=== PATIENT | female | born 1935 | race Caucasian/White ===

== ENCOUNTER 2018-03-26 12:39 | Inpatient (IN) | payer OTHER, MEDICARE ==
--- NOTE | 2018-03-26 13:11 | PDOC ---
History of Present Illness - General Chief Complaint: Vomiting/Diarrhea Stated Complaint: DIARRHEA/VOMITING Time Seen by Provider: 03/26/18 13:07 - History of Present Illness Initial Comments: 03/26/18 14:35 The patient is an 82 year old female with a history of HLD, CAD, MA, Uterine CA who presents for evaluation of abdominal pain, nausea, vomiting, diarrhea. The patient reports a 1 week history of persistent non-bloody diarrhea with associated intermittent nausea and non-bloody, non-bilious vomiting prompting her presentation to the ED for further evaluation. She also notes crampy, poorly described abdominal pain as well. She otherwise denies fevers, chills, SOB, chest pain, or changes with urination. Past History - Past Medical History Allergies/Adverse Reactions: Allergies Allergy/AdvReac Type Severity Reaction Status Date / Time Penicillins Allergy Rash Verified 03/22/16 21:22 Home Medications: Ambulatory Orders Aspirin [ASA -] 81 mg PO DAILY 02/25/14 Atorvastatin Ca [Lipitor -] 40 mg PO HS 02/25/14 Metoprolol Succinate [Toprol XL -] 50 mg PO DAILY 02/25/14 Cancer: Yes (UTERINE) Cardiac Disorders: Yes (2 STENTS) COPD: No Disorders: Yes (FREQUENCY & INCONTINENCE) Hypercholesterolemia: Yes - Surgical History Cardiac Surgery: Yes ('09 STENTS) Cholecystectomy: Yes Orthopedic Surgery: No - Suicide/Smoking/Psychosocial Hx Smoking Status: No Smoking History: Never smoked Have you smoked in the past 12 months: No Number of Cigarettes Smoked Daily: 0 If you are a former smoker, when did you quit?: 29 years Hx Alcohol Use: Yes (OCC WINE) Substance Use Type: Alcohol Review of Systems - Review of Systems Comments:: 03/26/18 14:39 Constitutional: No fevers, chills, fatigue, malaise HEENT: No Rhinorrhea, nasal congestion, visual changes Cardiovascular: No chest pain, syncope, palpitations, lightheadedness Respiratory: No Cough, SOB, Hemoptysis, Gastrointestinal: Abdominal pain, nausea, vomiting, diarrhea. No Constipation, Melena Genitourinary: No Dysuria, Frequency, Urgency, Hesitancy, Hematuria, Flank pain Musculoskeletal: No Myalgia, arthralgia Skin: No rashes, itching, bruising, pallor Neurologic: No Headache, Dizziness, Numbness, Weakness, or Tingling Psychiatric: No Hallucinations. No SI or HI *Physical Exam - Vital Signs Last Vital Signs Temp Pulse Resp BP Pulse Ox 97.9 F 106 H 18 132/63 98 03/26/18 12:41 03/26/18 12:41 03/26/18 12:41 03/26/18 12:41 03/26/18 12:41 - Physical Exam Comments: 03/26/18 14:42 General Appearance: Nourished. No Apparent Distress HEENT: No Pharyngeal Erythema, Tonsillar Exudate, Tonsillar Erythema Neck: No Cervical Lymphadenopathy Respiratory/Chest: Lungs Clear, Normal Breath Sounds. No Crackles, Rales, Rhonchi, Wheezing Cardiovascular: Regular Rhythm, Regular Rate. No Murmur, Gallops, Rubs Gastrointestinal/Abdominal: Normal Bowel Sounds, Diffuse tenderness to palpation worse in the LLQ with some guarding. No Guarding, Musculoskeletal: No CVA Tenderness Extremity: Normal Capillary Refill Integumentary: Normal Color, Dry, Warm Neurologic: Fully Oriented, Alert, Normal Mood/Affect, Normal Response, Moderate Sedation - Procedure Monitoring Vital Signs: Procedure Monitoring Vital Signs Temperature 97.9 F 03/26/18 12:41 Pulse Rate 106 H 03/26/18 12:41 Respiratory Rate 18 03/26/18 12:41 Blood Pressure 132/63 03/26/18 12:41 O2 Sat by Pulse Oximetry (%) 98 03/26/18 12:41 ED Treatment Course - LABORATORY CBC & Chemistry Diagram: 03/26/18 13:53 03/26/18 14:10 Medical Decision Making - Medical Decision Making 03/26/18 14:43 The patient is an 82 year old female with a history of HLD, CAD, MA, Uterine CA who presents for evaluation of abdominal pain, nausea, vomiting, diarrhea. Differential includes but is not limited to: Colitis, Diverticulitis, UTI, Infectious, Metabolic Derangement. Given the patient's history and physical exam, we will obtain a cbc, cmp, lactate, lipase, ua, urine culture, CT abdomen/ pelvis to evaluate further. We will treat with iv fluids and continue to monitor and reassess while here in the ED. 03/26/18 18:05 CBC, cmp, lactate, lipase are unremarkable. UA demonstrates positive nitrites, positive leuk esterase, elevated wbc consistent with a UTI. CT abdomen/pelvis demonstrates two ventral hernias with small bowel loops in the inferior ventral hernia with air fluid levels consistent with a partial early small bowel obstruction as read by our radiologist. We discussed the case with Dr. Plunkett with surgery who is aware of the case and recommends ng tube, npo, and iv fluids. We have placed an NG tube. We will treat the patient's UTI with ceftriaxone. The patient will require admission for further management. *DC/Admit/Observation/Transfer Diagnosis at time of Disposition: SBO (small bowel obstruction) - Discharge Dispostion Condition at time of disposition: Stable Decision to Admit order: Yes - Referrals Referrals: Owen Garcia MD [Primary Care Provider] - - Patient Instructions - Post Discharge Activity
[2018-03-26] MEDS ORDERED: SODIUM CHLORIDE 1,000 ML IV STA (13:43)
[2018-03-26 15:02] LABS: ALBUMIN 3.6 g/dl (3.4-5.0); ALK PHOS 70 U/L (45-117); ANION GAP 10 MMOL/L (8-16); BLOOD UREA NITROGEN 21 mg/dL (7-18); CHLORIDE 97 mmol/L (98-107); CO2 27 mmol/L (21-32); CREATININE 1.2 mg/dL (0.55-1.3); GLUCOSE,RANDOM 97 mg/dL (74-106); LIPASE 126 U/L (73-393); POTASSIUM 4.3 mmol/L (3.5-5.1); SGOT/AST 33 U/L (15-37); SGPT/ALT 28 U/L (13-61); SODIUM 135 mmol/L (136-145); TOT PROT 7.6 g/dl (6.4-8.2)
[2018-03-26 15:12] LABS: BASO % 0.3 % (0-2.0); EOS % 0.5 % (0-4.5); HEMATOCRIT 41.8 % (32.4-45.2); HEMOGLOBIN 13.6 GM/dL (10.7-15.3); LYMPH % 14.7 % (8-40); MCH 29.1 pg (25.7-33.7); MCHC 32.6 g/dl (32.0-36.0); MEAN CELL VOLUME 89.2 fl (80-96); MEAN PLT VOLUME 8.8 fl (7.5-11.1); MONO % 7.1 % (3.8-10.2); NEUT % 77.4 % (42.8-82.8); PLATELET COUNT 231 K/MM3 (134-434); RBC 4.69 M/mm3 (3.60-5.2); RDW 12.9 % (11.6-15.6); WHITE BLOOD COUNT 8.8 K/mm3 (4.0-10.0)
--- NOTE | 2018-03-26 15:43 | PDOC ---
Attending Attestation - Resident Resident Name: Bridger Shay - ED Attending Attestation I have performed the following: I have examined & evaluated the patient, The case was reviewed & discussed with the resident, I agree w/resident's findings & plan, Exceptions are as noted - HPI HPI: 03/26/18 15:37 The patient is a 82 year old female, with a significant past medical history of CAD (s/p stenting x2), osteoarthritis, HLD, recurrent UTIs, and Uterine/ Cervical Cancer, who presents to the emergency department with, 1 week of nausea , NBNB vomiting, and non-bloody diarrhea. Patient endorses associated weakness and feeling of dehydration, prompting her visit to the ER tonight. She denies recent fevers, chills, headache or dizziness. She denies recent dysuria, frequency, urgency or hematuria. She denies recent chest pain or shortness of breath. Allergies: Penicillin (rash) Past surgical history: Cholecystectomy. Cardiac stenting 2009 x2. Social history: Former smoker, quit >25 years ago, occasional alcohol use. Primary Care Physician: Dr. Owen Garcia - Physicial Exam PE: 03/26/18 15:37 GENERAL: Awake, alert, and fully oriented, in no acute distress. HEAD: No signs of trauma EYES: PERRLA, EOMI, sclera anicteric, conjunctiva clear ENT: Auricles normal inspection, hearing grossly normal, nares patent, oropharynx clear without exudates. Moist mucosa NECK: Nontender, no stepoffs, Normal ROM, supple, no lymphadenopathy, JVD, or masses LUNGS: Breath sounds equal, clear to auscultation bilaterally. No wheezes, and no crackles HEART: Regular rate and rhythm, normal S1 and S2, no murmurs, rubs or gallops ABDOMEN: + diffuse TTP, normoactive bowel sounds. No guarding, no rebound. No masses EXTREMITIES: Normal range of motion, no edema. No clubbing or cyanosis. No cords, erythema, or tenderness NEUROLOGICAL: Cranial nerves II through XII intact. 5/5 strength and sensation in all extremities, Normal speech, normal gait, normal cerebellar function SKIN: Warm, Dry, normal turgor, no rashes or lesions noted. - Medical Decision Making 03/26/18 15:43 82 F with diarrhea and abdominal pain. Exam with diffuse tenderness. Will evaluate for colitis or other acute intraabdominal process with CT. - Labs, UA - CTAP - IVF 03/26/18 16:56 CT shows hernia containing small bowel + partial SBO. Dr. Plunkett consulted
[2018-03-26 16:42] LABS: URINE APPEARANCE SLCLOUDY; URINE BILIRUBIN NEGATIVE (<2.0 mg/dL); URINE COLOR YELLOW; URINE GLUCOSE (UA) NEGATIVE (NEGATIVE); URINE KETONE NEGATIVE (NEGATIVE); URINE LEUK ESTERASE 1+ (NEGATIVE); URINE NITRITE POSITIVE (NEGATIVE); URINE PROTEIN NEGATIVE (NEGATIVE); URINE UROBILINOGEN NEGATIVE mg/dL (0.2-1.0)
[2018-03-26] MEDS ORDERED: SODIUM CHLORIDE 1,000 ML IV SCH (17:00)
[2018-03-26 17:21] LABS: EPI CELLS RARE /HPF (FEW); URINE BACTERIA MANY /hpf (NONE SEEN); URINE HYALINE CAST 4 /lpf
[2018-03-26] MEDS ORDERED: LORazepam 2 MG/ML SDV VIAL ONE (17:41)
[2018-03-26] MEDS ORDERED: CEFTRIAXONE 1 GM in DEXTROSE 5%-WATER - 100 ML IVPB ONE (18:04)
[2018-03-26] MEDS ORDERED: CEFTRIAXONE 1 GM/50 ML BAG ONE (18:35)
--- NOTE | 2018-03-26 19:33 | HP ---
CHIEF COMPLAINT: PCP: Dr. Owen Garcia HISTORY OF PRESENT ILLNESS: 82 yo F PMH of CAD (s/p stenting x2 2009), penicillin allergy, cholecystectomy, osteoarthritis, HLD, recurrent UTIs, and Uterine/Cervical Cancer s/p hysterectomy, p/w, crampy abd pain worse in epigastrum and nausea, NBNB vomiting , and non-bloody diarrhea x1wk. Patient had associated weakness and feeling of dehydration. Unable to tolerate PO although liquids are more tolerable. She denies fevers, chills, FERNÁNDEZ or dizziness, cp, sob, urinary sxs, changes in diet, recent illness. ER course was notable for: (1) ativan, CTX, 1 L NS, NS 100cc (2)UA 1+ leuk est, wbc 27, pos nitrite, many bacteria (3) CT shows hernia containing small bowel + partial SBO., NGT NPO Recent Travel: PAST MEDICAL HISTORY: as per HPI PAST SURGICAL HISTORY: Cholecystectomy. Cardiac stenting 2009 x2. hysterectomy Social History: Smoking:Former smoker, quit >25 years ago Alcohol: occasional alcohol use. Drugs: denies Family History: Allergies Penicillins Allergy (Verified 03/22/16 21:22) Rash HOME MEDICATIONS: Home Medications Medication Instructions Recorded Aspirin [ASA -] 81 mg PO DAILY 02/25/14 Atorvastatin Ca [Lipitor -] 40 mg PO HS 02/25/14 Metoprolol Succinate [Toprol XL -] 50 mg PO DAILY 02/25/14 REVIEW OF SYSTEMS as per HPI PHYSICAL EXAMINATION Vital Signs - 24 hr 03/26/18 12:41 Temperature 97.9 F Pulse Rate 106 H Respiratory 18 Rate Blood Pressure 132/63 O2 Sat by Pulse 98 Oximetry (%) GENERAL:AOX3, NAD, NGT HEAD: NCAT. EYES: sclera anicteric, conjunctiva clear. No lid lag. EARS, NOSE, THROAT: Ears normal, nares patent, oropharynx clear without exudates. Moist mucous membranes. NECK: Normal range of motion, supple without lymphadenopathy, JVD, or masses. LUNGS: CTAB HEART: RRR, normal S1 and S2 + systolic murmur ABDOMEN: Soft, TTP diffusely more prominent in epigastrum, ND, +ventral hernia.+ BS, MUSCULOSKELETAL: Normal range of motion at all joints. No bony deformities or tenderness. UPPER EXTREMITIES: 2+ pulses, warm, well-perfused. No cyanosis. No clubbing. No peripheral edema. LOWER EXTREMITIES: 2+ pulses, warm, well-perfused. No calf tenderness. No peripheral edema. NEUROLOGICAL: Cranial nerves II-XII intact. Normal speech. PSYCHIATRIC: Cooperative. Good eye contact. Appropriate mood and affect. SKIN: Warm, dry, normal turgor, no rashes or lesions noted, normal capillary refill. Laboratory Results - last 24 hr 03/26/18 03/26/18 03/26/18 13:53 14:10 14:22 WBC 8.8 RBC 4.69 Hgb 13.6 Hct 41.8 MCV 89.2 MCH 29.1 MCHC 32.6 RDW 12.9 Plt Count 231 MPV 8.8 Absolute Neuts (auto) 6.8 Neutrophils % 77.4 Lymphocytes % 14.7 D Monocytes % 7.1 Eosinophils % 0.5 Basophils % 0.3 Nucleated RBC % 0 Sodium 135 L Potassium 4.3 Chloride 97 L Carbon Dioxide 27 Anion Gap 10 BUN 21 H Creatinine 1.2 Creat Clearance w eGFR 43.01 Random Glucose 97 Lactic Acid 1.1 Calcium 9.0 Total Bilirubin 1.0 AST 33 ALT 28 Alkaline Phosphatase 70 Creatine Kinase 127 Troponin I < 0.02 Total Protein 7.6 Albumin 3.6 Lipase 126 Urine Color Urine Appearance Urine pH Ur Specific [place] Urine Protein Urine Glucose (UA) Urine Ketones Urine Blood Urine Nitrite Urine Bilirubin Urine Urobilinogen Ur Leukocyte Esterase Urine WBC (Auto) Urine RBC (Auto) Ur Epithelial Cells Urine Bacteria Hyaline Casts 03/26/18 16:16 WBC RBC Hgb Hct MCV MCH MCHC RDW Plt Count MPV Absolute Neuts (auto) Neutrophils % Lymphocytes % Monocytes % Eosinophils % Basophils % Nucleated RBC % Sodium Potassium Chloride Carbon Dioxide Anion Gap BUN Creatinine Creat Clearance w eGFR Random Glucose Lactic Acid Calcium Total Bilirubin AST ALT Alkaline Phosphatase Creatine Kinase Troponin I Total Protein Albumin Lipase Urine Color Yellow Urine Appearance Slcloudy Urine pH 5.0 Ur Specific [place] 1.013 Urine Protein Negative Urine Glucose (UA) Negative Urine Ketones Negative Urine Blood 1+ H Urine Nitrite Positive Urine Bilirubin Negative Urine Urobilinogen Negative Ur Leukocyte Esterase 1+ H Urine WBC (Auto) 27 Urine RBC (Auto) 3 Ur Epithelial Cells Rare Urine Bacteria Many Hyaline Casts 4 ASSESSMENT/PLAN: 82 yo F PMH of CAD (s/p stenting x2 2008), penicillin allergy, cholecystectomy, osteoarthritis, HLD, recurrent UTIs, and Uterine/Cervical Cancer, p/w, crampy abd pain worse in epigastrum and nausea, NBNB vomiting, and non-bloody diarrhea x1wk. Partial SBO - afebrile and w/o leukocytosis. CT A/P - two ventral hernias with small bowel loops in the inferior ventral hernia with air fluid levels consistent with a partial early small bowel obstruction lactic nl, lipase nl, trop neg x1 Surgery consult NGT NPO s/p 1 L NS in ED NS 100cc pain ctl - morphine/tylenol send stool for C.diff monitor BMP prolonged Qtc 492 monitor Qtc give anti-nausea meds prn and cautiously rpt EKG in AM UTI - hx UTIs UA 1+ leuk est, wbc 27, pos nitrite, many bacteria s/p rocephin in ED c/w rocephin 1g qd f/u Ucx BOB - likely prerenal 2/2 dehydration. Cr 1.2, baseline is .8 IVF monitor Cr FEN NS 100cc relpete prn NPO, NGT DVT prophylaxis SCDs, will hold off on AC in anticipation for possible surgical intervention Advance directives - Full code Dispo med/surg possible surgery pending conservative management Visit type - Emergency Visit Emergency Visit: Yes ED Registration Date: 03/26/18 Care time: The patient presented to the Emergency Department on the above date and was hospitalized for further evaluation of their emergent condition. - New Patient This patient is new to me today: Yes Date on this admission: 03/26/18 - Critical Care Critical Care patient: No
--- NOTE | 2018-03-26 20:02 | PN ---
Teaching Attending Note Name of Resident: Geovani Jones ATTENDING PHYSICIAN STATEMENT I saw and evaluated the patient. I reviewed the resident's note and discussed the case with the resident. I agree with the resident's findings and plan as documented. SUBJECTIVE: Patient is an 82 year old woman with a significant PMH of CAD (s/p stenting x2) , penicillin allergy, cholecystectomy, osteoarthritis, HLD, recurrent UTIs, and Uterine/Cervical Cancer, who presents to the ER with, 1 week of nausea, NBNB vomiting, and non-bloody diarrhea. Patient had associated weakness and feeling of dehydration. She denies chills, headache or dizziness, dysuria, frequency, chest pain or shortness of breath. OBJECTIVE: Alert Vital Signs Period Temp Pulse Resp BP Sys/Gonzalez Pulse Ox Last 24 Hr 97.9 F 106 18 132/63 98 HEENT: No Jaundice, eye redness or discharge, PERRLA, EOMI. Normocephalic, atraumatic. External ears are normal and hearing is grossly intact. No nasal discharge. Neck: Supple, nontender. No palpable adenopathy or thyromegaly. No JVD Chest: Good effort. Clear to auscultation and percussion. Heart: Regular. No S3, rub or murmur Abdomen: Not distended, diffuse tenderness, soft, nontender and no HSM. No rebound or guarding. Normoactive bowel sounds. Ext: Peripheral pulses intact. No leg edema. Skin: Warm and dry. No petechiae, rash or ecchymosis. Neuro: Alert. Oriented x3. CN 2-12 grossly intact. Sensation grossly intact in all four extremities and DTR are symmetric. Current Medications Generic Name Dose Route Start Last Admin Trade Name Freq PRN Reason Stop Dose Admin Sodium Chloride 1,000 mls @ 100 mls/hr 03/26/18 17:00 03/26/18 17:04 Normal Saline - IV 100 mls/hr ASDIR ESTUARDO Administration Home Medications Medication Instructions Recorded Aspirin [ASA -] 81 mg PO DAILY 02/25/14 Atorvastatin Ca [Lipitor -] 40 mg PO HS 02/25/14 Metoprolol Succinate [Toprol XL -] 50 mg PO DAILY 02/25/14 Abnormal Lab Results 03/26/18 03/26/18 14:10 16:16 Sodium 135 L Chloride 97 L BUN 21 H Urine Blood 1+ H Ur Leukocyte Esterase 1+ H ASSESSMENT AND PLAN: 1. Partial SBO - CT scan shows partial small bowel obstruction. There is also colonic distension and possible obstruction. Surgery consulted and NGT placement being done. Will send stool for C.diff, continue IV NS, monitor electrolytes and treat UTI with Rocephin. 2. DVT prophylaxis - Lovenox 40 mg SQ q 24 hours. 3. Advance directives - Full code
[2018-03-26] MEDS ORDERED: MORPHINE SULFATE 2 MG/ML VIAL IVPUSH PRN (20:28)
[2018-03-26] MEDS ORDERED: ACETAMINOPHEN 1000 MG/100 ML VIAL (NON FORMULARY) IVPB PRN (20:35)
[2018-03-27 06:21] LABS: BASO % 0.4 % (0-2.0); EOS % 1.9 % (0-4.5); HEMATOCRIT 38.7 % (32.4-45.2); HEMOGLOBIN 12.9 GM/dL (10.7-15.3); LYMPH % 16.7 % (8-40); MCH 29.3 pg (25.7-33.7); MCHC 33.2 g/dl (32.0-36.0); MEAN PLT VOLUME 7.9 fl (7.5-11.1); MONO % 6.8 % (3.8-10.2); NEUT % 74.2 % (42.8-82.8); PLATELET COUNT 212 K/MM3 (134-434)
[2018-03-27 06:40] LABS: INR 1.03 (0.83-1.09); PROTHROMBIN TIME (PATIENT) 12.2 SEC (9.7-13.0)
[2018-03-27 06:42] LABS: ACTIVATED PTT 25.4 SECONDS (25.2-36.5)
[2018-03-27 06:47] LABS: ALBUMIN 3.2 g/dl (3.4-5.0); ALK PHOS 62 U/L (45-117); ANION GAP 8 MMOL/L (8-16); BILIRUBIN,TOTAL 0.6 mg/dL (0.2-1); BLOOD UREA NITROGEN 15 mg/dL (7-18); CHLORIDE 102 mmol/L (98-107); CO2 29 mmol/L (21-32); CREATININE 0.8 mg/dL (0.55-1.3); GLUCOSE,RANDOM 76 mg/dL (74-106); MAGNESIUM 1.9 mg/dL (1.8-2.4); PHOSPHOROUS 3.1 mg/dL (2.5-4.9); POTASSIUM 3.3 mmol/L (3.5-5.1); SGOT/AST 22 U/L (15-37); SGPT/ALT 22 U/L (13-61); SODIUM 139 mmol/L (136-145); TOT PROT 6.6 g/dl (6.4-8.2)
--- NOTE | 2018-03-27 07:47 | CONSULT ---
- Consultation REQUESTING PROVIDER: Travon Plunkett MD - General Surgery CONSULT REQUEST: We have been asked to surgically evaluate this patient for PSBO PCP: JOHN Farias HPI: Called to evhellen 82yo female with PMHx as noted below. Patient was in her usual state of good health when the abd pain started 1 week ago today. Admits to bouts of intermittent n/v (nbnb) as well as diarrhea (baseline for her per pt ). Unable to drink or eat. Feels very weak. Finally, frustrated she comes to [facility] ED for further evaluation of her condition. States she never experienced this before. She describes her pain as "crampy" in nature and points to her epigastric region. Currently has NGT (on LWCS). Hasn't passed flatus since admit to hospital and can't remember when her last solid bm was. While in the ED she had a abd CT scan which identiifed 2 ventral hernias (1. proximal one contains fat only. second one in the distal/pelvis contains loop of SB and appears to be the cause of the PSBO. Denies fevers, chills, FERNÁNDEZ, CP, palpitation, SOB, TELLEZ, dysuria , hematuria, recent illness. PMHx: OA, HLD, recurrent UTI, Vulvar CA PSHx: Open Cholecystectomy 1960s. Cardiac stenting x2 in 2008. Hysterectomy Home Meds ASA 81 mg PO daily Lipitor 40 mg PO HS Toprol XL 50 mg PO Daily Allergies: PCNs ROS: CONSTITUTIONAL: Absent: fever, chills, diaphoresis, generalized weakness, malaise, loss of appetite, weight change CARDIOVASCULAR: Absent: chest pain, syncope, palpitations, irregular heart rate , lightheadedness, peripheral edema RESPIRATORY: Absent: cough, shortness of breath, dyspnea with exertion, wheezing , stridor, hemoptysis GASTROINTESTINAL:Absent: abdominal pain, abdominal distension, nausea, vomiting , diarrhea, constipation, melena, hematochezia GENITOURINARY: Absent: dysuria, frequency, urgency, hesitancy, hematuria, flank pain, genital pain MUSCULOSKELETAL: Absent: myalgia, arthralgia, joint swelling, back pain, neck pain SKIN: Absent: rash, itching, pallor HEMATOLOGIC/IMMUNOLOGIC: Absent: easy bleeding, easy bruising, lymphadenopathy NEUROLOGIC: Absent: headache, paresthesias, dizziness, unsteady gait, seizure, mental status changes, bladder or bowel incontinence PSYCHIATRIC: Absent: anxiety, depression, suicidal or homicidal ideation, hallucinations. PE: GENERAL: Awake, alert, and fully oriented, in no acute distress. HEAD: Normal with no signs of trauma. ENT: PERRL, sclera anicteric, conjunctiva clear. NGT with billious drainage 300mL NECK: Normal ROM, supple without lymphadenopathy, JVD, or masses. LUNGS: Clear to auscultation bilat anteriorly. No wheezes, and no crackles. No accessory muscle use. HEART: Regular rate and rhythm. No murmurs ABDOMEN: Soft, nontender, not distended, normoactive bowel sounds, no guarding, no rebound, no masses. Ventral hernia x2 MUSCULOSKELETAL: Normal ROM at all joints. No bony deformities or tenderness. No CVA tenderness. UPPER EXTREMITIES: 2+ pulses, warm, well-perfused. No cyanosis. Cap refill <2 seconds. No peripheral edema. LOWER EXTREMITIES: 2+ pulses, warm, well-perfused. No calf tenderness. No peripheral edema. NEUROLOGICAL: Normal speech, gait not observed. PSYCH: Cooperative. Good eye contact. Appropriate mood and affect. SKIN: Warm, dry, normal turgor, no rashes or lesions noted. Last Vital Signs Temp Pulse Resp BP Pulse Ox 98.2 F 93 H 20 142/63 96 03/26/18 20:45 03/27/18 06:23 03/27/18 06:23 03/27/18 06:23 03/27/18 06:23 CBC, BMP 03/27/18 05:40 03/27/18 06:00 Blood Type Blood Type AB POSITIVE 03/27/18 05:40 Hepatic Panel Total Bilirubin 0.6 mg/dL (0.2-1) 03/27/18 06:00 AST 22 U/L (15-37) 03/27/18 06:00 ALT 22 U/L (13-61) 03/27/18 06:00 Alkaline Phosphatase 62 U/L (45-117) 03/27/18 06:00 Albumin 3.2 g/dl (3.4-5.0) L 03/27/18 06:00 INR, PTT INR 1.03 (0.83-1.09) 03/27/18 05:40 Urine Test Results Urine Color Yellow 03/26/18 16:16 Urine Appearance Slcloudy 03/26/18 16:16 Urine pH 5.0 (5.0-8.0) 03/26/18 16:16 Ur Specific [place] 1.013 (1.010-1.035) 03/26/18 16:16 Urine Protein Negative (NEGATIVE) 03/26/18 16:16 Urine Glucose (UA) Negative (NEGATIVE) 03/26/18 16:16 Urine Ketones Negative (NEGATIVE) 03/26/18 16:16 Urine Blood 1+ (NEGATIVE) H 03/26/18 16:16 Urine Nitrite Positive (NEGATIVE) 03/26/18 16:16 Urine Bilirubin Negative (<2.0 mg/dL) 03/26/18 16:16 Ur Leukocyte Esterase 1+ (NEGATIVE) H 03/26/18 16:16 Ur Epithelial Cells Rare /HPF (FEW) 03/26/18 16:16 Urine Bacteria Many /hpf (NONE SEEN) 03/26/18 16:16 Problem List - Problems (1) SBO (small bowel obstruction) Assessment/Plan: 82 yo female admitted with PSBO secondary to hernia containing loop of SB. Currently, patient resting comfortably with NGT. Hemodynamically stable. Cont NGT to LWCS Ice chips IVF 125mL/hr GI PPX DVT PPX OOB and ambulate Serial ABD exams Replete elytes PRN Cont to monitor and record NGT output q shift Conservative management at this time If fails to progress patient would benefit from Dx laparoscopy. Discussed above plan with patient and she understands and is agreeable with plan of action. Above plan discussed with Dr. Plunkett and agrees. Code(s): K56.609 - UNSP INTESTNL OBST, UNSP TO PARTIAL VERSUS COMPLETE OBST (2) Ventral hernia Code(s): K43.9 - VENTRAL HERNIA WITHOUT OBSTRUCTION OR GANGRENE Visit type - Case Type Case Type: ED Admission - Emergency Emergency Visit: Yes ED Registration Date: 03/26/18 Care time: The patient presented to the Emergency Department on the above date and was hospitalized for further evaluation of their emergent condition. - New patient This patient is new to me today: Yes Date on this admission: 03/27/18
[2018-03-27] MEDS ORDERED: ONDANSETRON 4 MG/2 ML VIAL IVPUSH PRN (09:02)
--- NOTE | 2018-03-27 09:03 | PN ---
Progress Note, Physician Chief Complaint: Pt sitting in bed in no acute distress. Reports abd pain better. denies n/v, chest pain, sob - Current Medication List Current Medications: Active Medications Acetaminophen (Ofirmev Injection -) 1,000 mg IVPB Q6H PRN PRN Reason: PAIN LEVEL 4 - 6 Sodium Chloride (Normal Saline -) 1,000 mls @ 100 mls/hr IV ASDIR ESTUARDO Last Admin: 03/26/18 17:04 Dose: 100 mls/hr Ceftriaxone Sodium 1 gm/ (Dextrose) 50 mls @ 100 mls/hr IVPB DAILY@1800 ESTUARDO Potassium Chloride (Potassium Chloride 10 Meq Premix Ivpb -) 10 meq in 100 mls @ 100 mls/hr IVPB Q60M ESTUARDO Stop: 03/27/18 12:14 Morphine Sulfate (Morphine Sulfate) 2 mg IVPUSH Q4H PRN PRN Reason: PAIN LEVEL 7 - 10 Ondansetron HCl (Zofran Injection) 4 mg IVPUSH Q6H PRN PRN Reason: NAUSEA AND/OR VOMITING - Objective Vital Signs: Vital Signs Temperature 98.2 F 03/26/18 20:45 Pulse Rate 93 H 03/27/18 06:23 Respiratory Rate 20 03/27/18 06:23 Blood Pressure 142/63 03/27/18 06:23 O2 Sat by Pulse Oximetry (%) 96 03/27/18 06:23 Constitutional: Yes: Well Nourished, No Distress, Calm Cardiovascular: Yes: Regular Rate and Rhythm Respiratory: Yes: Regular, CTA Bilaterally. No: Accessory Muscle Use, Rhonchi, SOB Gastrointestinal: Yes: Soft, Abdomen, Obese, Hypoactive Bowel Sounds, Other ( NGT to LCWS). No: Distention, Tenderness, Vomiting Genitourinary: Yes: WNL Extremities: Yes: WNL Edema: No Neurological: Yes: WNL, Alert, Oriented Psychiatric: Yes: WNL, Alert, Oriented Labs: CBC, BMP 03/27/18 05:40 03/27/18 06:00 INR, PTT INR 1.03 (0.83-1.09) 03/27/18 05:40 Problem List - Problems (1) SBO (small bowel obstruction) Assessment/Plan: improving suspect 2/2 ventral hernia conservative management NGT to LCWS NPO IVF antiemetics Kub scan tmrw am- monitor surgery following Code(s): K56.609 - UNSP INTESTNL OBST, UNSP TO PARTIAL VERSUS COMPLETE OBST (2) Ventral hernia Assessment/Plan: as above Code(s): K43.9 - VENTRAL HERNIA WITHOUT OBSTRUCTION OR GANGRENE Qualifiers: Obstruction and gangrene presence: with obstruction but without gangrene Qualified Code(s): K43.6 - Other and unspecified ventral hernia with obstruction , without gangrene (3) Hypokalemia Assessment/Plan: k 3.3 kcl iv 10meqx 3 runs supplement to ivf if no improvement monitor bmp Code(s): E87.6 - HYPOKALEMIA (4) UTI (urinary tract infection) Assessment/Plan: UA+, UC pending pt asymptomatic will tx in the setting of psbo ceftriaxone day 2 await culture, d/c antibx if culture neg Code(s): N39.0 - URINARY TRACT INFECTION, SITE NOT SPECIFIED Qualifiers: Urinary tract infection type: acute cystitis Hematuria presence: with hematuria Qualified Code(s): N30.01 - Acute cystitis with hematuria (5) CAD (coronary artery disease) Assessment/Plan: no acute ACS hold asa/statin while npo Code(s): I25.10 - ATHSCL HEART DISEASE OF [place] CORONARY ARTERY W/O ANG PCTRS Qualifiers: [place] vs. transplanted heart: [place] heart Associated angina: without angina (6) HTN (hypertension) Assessment/Plan: controlled hold po metoprolol metoprolol iv prn Code(s): I10 - ESSENTIAL (PRIMARY) HYPERTENSION Qualifiers: Hypertension type: essential hypertension Qualified Code(s): I10 - Essential (primary) hypertension
[2018-03-27] MEDS ORDERED: CEFTRIAXONE 1 GM/50 ML BAG ONE ×2 (10:28→17:24)
[2018-03-27] MEDS ORDERED: KCL 10 MEQ IVPB 10 MEQ/100 ML INFUS.BAG IVPB ONE ×3 (10:28→14:55)
[2018-03-27] MEDS: DEXTROSE 5%-0.45% SALINE 1,000 ML IV SCH ×3 (10:43→23:57)
[2018-03-27] MEDS: KCL 10 MEQ IVPB 10 MEQ/100 ML INFUS.BAG IVPB SCH ×3 (10:44→14:57)
--- NOTE | 2018-03-27 14:32 | EKG ---
Test Reason : Blood Pressure : / mmHG Vent. Rate : 101 BPM Atrial Rate : 101 BPM P-R Int : 136 ms QRS Dur : 070 ms QT Int : 380 ms P-R-T Axes : 052 024 028 degrees QTc Int : 492 ms POOR DATA QUALITY, INTERPRETATION MAY BE ADVERSELY AFFECTED SINUS TACHYCARDIA ANTERIOR INFARCT (CITED ON OR BEFORE 26-MAR-2018) ABNORMAL ECG WHEN COMPARED WITH ECG OF 25-FEB-2014 18:32, ST NOW DEPRESSED IN ANTERIOR LEADS NONSPECIFIC T WAVE ABNORMALITY NOW EVIDENT IN ANTERIOR LEADS Confirmed by Delano Maher ([id number]) on 03/27/2018 2:31:47 PM Referred By: Confirmed By:Delano Maher
--- NOTE | 2018-03-27 15:31 | EKG ---
Test Reason : Blood Pressure : / mmHG Vent. Rate : 093 BPM Atrial Rate : 093 BPM P-R Int : 152 ms QRS Dur : 076 ms QT Int : 418 ms P-R-T Axes : 057 049 050 degrees QTc Int : 519 ms POOR DATA QUALITY, INTERPRETATION MAY BE ADVERSELY AFFECTED Electrode noise SINUS RHYTHM WITH PREMATURE ATRIAL COMPLEXES OTHERWISE NORMAL ECG WHEN COMPARED WITH ECG OF 26-MAR-2018 18:17, PREMATURE ATRIAL COMPLEXES ARE NOW PRESENT CRITERIA FOR ANTERIOR INFARCT ARE NO LONGER PRESENT Confirmed by Delano Maher ([id number]) on 03/27/2018 3:31:39 PM Referred By: Confirmed By:Delano Maher
[2018-03-27] MEDS ORDERED: METOPROLOL TARTRATE 5 MG/5 ML VIAL IVPUSH PRN (16:03)
[2018-03-27] MEDS: CEFTRIAXONE 1 GM in DEXTROSE 5%-WATER - 50 ML IVPB SCH (17:27)
[2018-03-27 23:41] VITALS: BMI 27.0
[2018-03-28 08:16] LABS: BASO % 0.3 % (0-2.0); EOS % 2.9 % (0-4.5); HEMATOCRIT 35.6 % (32.4-45.2); HEMOGLOBIN 12.4 GM/dL (10.7-15.3); LYMPH % 18.3 % (8-40); MCH 30.5 pg (25.7-33.7); MCHC 34.9 g/dl (32.0-36.0); MEAN CELL VOLUME 87.3 fl (80-96); MEAN PLT VOLUME 8.4 fl (7.5-11.1); MONO % 7.9 % (3.8-10.2); NEUT % 70.6 % (42.8-82.8); PLATELET COUNT 220 K/MM3 (134-434); RBC 4.08 M/mm3 (3.60-5.2); WHITE BLOOD COUNT 7.7 K/mm3 (4.0-10.0)
[2018-03-28 09:36] LABS: ANION GAP 8 MMOL/L (8-16); BLOOD UREA NITROGEN 6 mg/dL (7-18); CALCIUM 7.4 mg/dL (8.5-10.1); CHLORIDE 101 mmol/L (98-107); CO2 29 mmol/L (21-32); CREATININE 0.6 mg/dL (0.55-1.3); GLUCOSE,RANDOM 83 mg/dL (74-106); POTASSIUM 3.1 mmol/L (3.5-5.1); SODIUM 138 mmol/L (136-145)
[2018-03-28 09:55] LABS: MAGNESIUM 1.7 mg/dL (1.8-2.4)
--- NOTE | 2018-03-28 12:24 | PN ---
Progress Note (short form) - Note Progress Note: Attending Surgeon No c/o; passing flatus and having bowel movements VSS AF abdo-soft; flat and non tender; minimal tympany; hernias are reducible. NGT 500/24 hrs. ? IMP: doing welll PLAN: flat and upright abdominal xray; if no radilogical evidence of obstruction will remove NGT and advance diet as tolerated. Travon Plunkett MD FACS
--- NOTE | 2018-03-28 16:26 | PN ---
Physical Exam: SUBJECTIVE: Patient seen and examined. She has no complaints. She denies abdominal pain, nausea. She says she has had bowel movements today. OBJECTIVE: Vital Signs Period Temp Pulse Resp BP Sys/Gonzalez Pulse Ox Last 24 Hr 97.3 F-98.7 F 91-107 16-20 128-158/60-75 99-99 GENERAL: The patient is awake, alert, and fully oriented, in no acute distress. HEART: Regular rate and rhythm, S1, S2, (+) 3/6 SM ABDOMEN: Soft, nontender, nondistended, normoactive bowel sounds, no guarding, no rebound, no hepatosplenomegaly, no masses. EXTREMITIES: 2+ pulses, warm, well-perfused, no edema. Laboratory Results - last 24 hr 03/28/18 03/28/18 07:04 07:04 WBC 7.7 RBC 4.08 Hgb 12.4 Hct 35.6 MCV 87.3 MCH 30.5 MCHC 34.9 RDW 13.0 Plt Count 220 MPV 8.4 Absolute Neuts (auto) 5.4 Neutrophils % 70.6 Lymphocytes % 18.3 Monocytes % 7.9 Eosinophils % 2.9 Basophils % 0.3 Nucleated RBC % 0 Sodium 138 Potassium 3.1 L Chloride 101 Carbon Dioxide 29 Anion Gap 8 BUN 6 L Creatinine 0.6 Creat Clearance w eGFR > 60 Random Glucose 83 Calcium 7.4 L Phosphorus 2.0 L Magnesium 1.7 L Active Medications Generic Name Dose Route Start Last Admin Trade Name Freq PRN Reason Stop Dose Admin Acetaminophen 1,000 mg 03/26/18 20:35 Ofirmev Injection - IVPB Q6H PRN PAIN LEVEL 4 - 6 Ceftriaxone Sodium 1 gm/ 50 mls @ 100 mls/hr 03/27/18 18:00 03/27/18 17:27 Dextrose IVPB 100 mls/hr DAILY@1800 ESTUARDO Administration Dextrose/Sodium Chloride 1,000 mls @ 75 mls/hr 03/28/18 16:25 D5-1/2ns - IV ASDIR ESTUARDO Metoprolol Tartrate 5 mg 03/27/18 16:03 Lopressor Injection - IVPUSH Q6H PRN HYPERTENSION Morphine Sulfate 2 mg 03/26/18 20:28 Morphine Sulfate IVPUSH Q4H PRN PAIN LEVEL 7 - 10 Ondansetron HCl 4 mg 03/27/18 09:02 03/27/18 23:53 Zofran Injection IVPUSH 4 mg Q6H PRN Administration NAUSEA AND/OR VOMITING ASSESSMENT/PLAN: 1. Partial SBO - Improved - Possibly secondary to ventral hernia - Remove NGT - Start clear liquids - Reduce IV fluid 2. Ventral hernia 3. Hypokalemia - Replete potassium 4. UTI - Continue ceftriaxone (day 3) - Follow up urine culture 5. CAD - Restart aspirin, Toprol XL, Lipitor 6. HTN - Restart Toprol XL 7. Hyperlipidemia - Restart Lipitor 8. History of cholecystectomy 9. History of hysterectomy for uterine cancer Visit type - Emergency Visit Emergency Visit: Yes ED Registration Date: 03/26/18 Care time: The patient presented to the Emergency Department on the above date and was hospitalized for further evaluation of their emergent condition. - New Patient This patient is new to me today: Yes Date on this admission: 03/28/18 - Critical Care Critical Care patient: No - Discharge Referral Referred to [facility] Med [facility] No
[2018-03-28] MEDS: DEXTROSE 5%-0.45% SALINE 1,000 ML IV SCH (16:34)
[2018-03-28] MEDS ORDERED: MAGNESIUM OXIDE 400 MG TABLET (FP) PO ONE (17:00)
[2018-03-28] MEDS ORDERED: POTASSIUM CHLORIDE TABS 20 MEQ TABLET.ER (FP) PO ONE (17:00)
[2018-03-28] MEDS ORDERED: DEXTROSE 5%-WATER - 50 ML IVPB ONE (17:04)
[2018-03-28] MEDS ORDERED: cefTRIAXone SODIUM 1 GM VIAL ONE (17:04)
[2018-03-28] MEDS: CEFTRIAXONE 1 GM in DEXTROSE 5%-WATER - 50 ML IVPB SCH (17:11)
[2018-03-28] MEDS: NAPH,MB-DB/K PH,MBDB POWDER PACKET PO SCH (21:35)
[2018-03-29] MEDS ORDERED: LOPERAMIDE HCL 2 MG CAPSULE PO PRN (02:08)
[2018-03-29] MEDS: DEXTROSE 5%-0.45% SALINE 1,000 ML IV SCH (06:31)
[2018-03-29] MEDS: NAPH,MB-DB/K PH,MBDB POWDER PACKET PO SCH ×3 (06:32→21:27)
[2018-03-29 07:47] LABS: ANION GAP 8 MMOL/L (8-16); BLOOD UREA NITROGEN 4 mg/dL (7-18); CALCIUM 7.5 mg/dL (8.5-10.1); CHLORIDE 100 mmol/L (98-107); CO2 30 mmol/L (21-32); CREATININE 0.7 mg/dL (0.55-1.3); GLUCOSE,RANDOM 97 mg/dL (74-106); MAGNESIUM 1.9 mg/dL (1.8-2.4); PHOSPHOROUS 1.9 mg/dL (2.5-4.9); POTASSIUM 3.6 mmol/L (3.5-5.1); SODIUM 138 mmol/L (136-145)
--- NOTE | 2018-03-29 09:11 | PN ---
Progress Note (short form) - Note Progress Note: Pt sates that she had 4 to 5 episodes of diarrhea(nonbloody). On clears after NGT removed. Vital Signs Period Temp Pulse Resp BP Sys/Gonzalez Pulse Ox Last 24 Hr 97.3 F-98.1 F 91-97 18-18 133-139/72-78 99 GEN: appears comfortable ABD: soft, non-distended, non-tender CBC, BMP 03/28/18 07:04 03/29/18 07:00 AXR: report dilated bowel A/P: 82 yo female with resolving SBO, now with diarrhea Tolerating clears, afebrile without any leukocytosis D/w Dr. Plunkett and obtain repeat AXR today/flat an upright <Milvia Jaimes - Last Filed: 03/29/18 09:12> - Note Progress Note: Attending Surgeon Seen in f/u; no clinical or radiological evidence of obstruction at this time; advance diet as tolerated. Travon Plunkett MD FACS <Travon Plunkett - Last Filed: 03/29/18 13:57>
[2018-03-29] MEDS: ASPIRIN 81 MG CHEWABLE TABLETS PO SCH (09:52)
[2018-03-29] MEDS: metoPROLOL SUCCINATE 25 MG TAB.SR.24H (FP) PO SCH (09:52)
[2018-03-29] MEDS ORDERED: POTASSIUM CHLORIDE TABS 20 MEQ TABLET.ER (FP) PO ONE (13:30)
--- NOTE | 2018-03-29 16:46 | PN ---
Progress Note, Physician Chief Complaint: Pt sitting in bed in no acute distress. tolerating clears. denies n/v, chest pain, sob, and pain - Current Medication List Current Medications: Active Medications Acetaminophen (Ofirmev Injection -) 1,000 mg IVPB Q6H PRN PRN Reason: PAIN LEVEL 4 - 6 Aspirin (Asa -) 81 mg PO DAILY [facility] Last Admin: 03/29/18 09:52 Dose: 81 mg Atorvastatin Calcium (Lipitor -) 40 mg PO [facility] Metoprolol Succinate (Toprol Xl -) 50 mg PO DAILY [facility] Last Admin: 03/29/18 09:52 Dose: 50 mg Metoprolol Tartrate (Lopressor Injection -) 5 mg IVPUSH Q6H PRN PRN Reason: HYPERTENSION Morphine Sulfate (Morphine Sulfate) 2 mg IVPUSH Q4H PRN PRN Reason: PAIN LEVEL 7 - 10 Ondansetron HCl (Zofran Injection) 4 mg IVPUSH Q6H PRN PRN Reason: NAUSEA AND/OR VOMITING Last Admin: 03/27/18 23:53 Dose: 4 mg Potassium Phos/Sodium Phos (Phos-Nak Packet -) 1 packet PO TID [facility] Last Admin: 03/29/18 13:41 Dose: 1 packet - Objective Vital Signs: Vital Signs Temperature 98.0 F 03/29/18 14:48 Pulse Rate 89 03/29/18 14:48 Respiratory Rate 18 03/29/18 14:48 Blood Pressure 135/69 03/29/18 14:48 O2 Sat by Pulse Oximetry (%) 99 03/29/18 09:00 Constitutional: Yes: Well Nourished, No Distress, Calm Cardiovascular: Yes: WNL, Regular Rate and Rhythm Respiratory: Yes: WNL, Regular, CTA Bilaterally. No: Accessory Muscle Use, SOB , Tachypnea, Wheezes Gastrointestinal: Yes: WNL, Normal Bowel Sounds, Soft, Abdomen, Obese, Hernia. No: Distention, Tenderness Genitourinary: Yes: WNL Extremities: Yes: WNL Edema: No Neurological: Yes: WNL, Alert, Oriented Psychiatric: Yes: WNL, Alert, Oriented Labs: CBC, BMP 03/28/18 07:04 03/29/18 07:00 INR, PTT INR 1.03 (0.83-1.09) 03/27/18 05:40 Problem List - Problems (1) SBO (small bowel obstruction) Code(s): K56.609 - UNSP INTESTNL OBST, UNSP TO PARTIAL VERSUS COMPLETE OBST (2) Ventral hernia Code(s): K43.9 - VENTRAL HERNIA WITHOUT OBSTRUCTION OR GANGRENE Qualifiers: Obstruction and gangrene presence: with obstruction but without gangrene Qualified Code(s): K43.6 - Other and unspecified ventral hernia with obstruction , without gangrene (3) Hypokalemia Code(s): E87.6 - HYPOKALEMIA (4) UTI (urinary tract infection) Code(s): N39.0 - URINARY TRACT INFECTION, SITE NOT SPECIFIED Qualifiers: Urinary tract infection type: acute cystitis Hematuria presence: with hematuria Qualified Code(s): N30.01 - Acute cystitis with hematuria (5) CAD (coronary artery disease) Code(s): I25.10 - ATHSCL HEART DISEASE OF [place] CORONARY ARTERY W/O ANG PCTRS Qualifiers: [place] vs. transplanted heart: [place] heart Associated angina: without angina (6) HTN (hypertension) Code(s): I10 - ESSENTIAL (PRIMARY) HYPERTENSION Qualifiers: Hypertension type: essential hypertension Qualified Code(s): I10 - Essential (primary) hypertension Assessment/Plan (1) SBO (small bowel obstruction) Assessment/Plan: resolved w/ conserv mngmnt +bm, +flatus 2/2 ventral hernia tolerating clears- advance as tolerated case discussed w/ surgery Code(s): K56.609 - UNSP INTESTNL OBST, UNSP TO PARTIAL VERSUS COMPLETE OBST (2) Ventral hernia Assessment/Plan: as above Code(s): K43.9 - VENTRAL HERNIA WITHOUT OBSTRUCTION OR GANGRENE Qualifiers: Obstruction and gangrene presence: with obstruction but without gangrene Qualified Code(s): K43.6 - Other and unspecified ventral hernia with obstruction , without gangrene (3) Hypokalemia Assessment/Plan: improved kcl po [id number] monitor bmp Code(s): E87.6 - HYPOKALEMIA (4) UTI (urinary tract infection) Assessment/Plan: asymptomatic urine culture neg ceftriaxone d/c'd Code(s): N39.0 - URINARY TRACT INFECTION, SITE NOT SPECIFIED Qualifiers: Urinary tract infection type: acute cystitis Hematuria presence: with hematuria Qualified Code(s): N30.01 - Acute cystitis with hematuria (5) CAD (coronary artery disease) Assessment/Plan: no acute ACS continue asa/statin Code(s): I25.10 - ATHSCL HEART DISEASE OF [place] CORONARY ARTERY W/O ANG PCTRS Qualifiers: [place] vs. transplanted heart: [place] heart Associated angina: without angina (6) HTN (hypertension) Assessment/Plan: controlled continue metoprolol Code(s): I10 - ESSENTIAL (PRIMARY) HYPERTENSION Qualifiers: Hypertension type: essential hypertension Qualified Code(s): I10 - Essential (primary) hypertension (7) Hypophosphatemia Assessment/Plan: improving kphos scheduled monitor bmp Code(s): E83.39 - OTHER DISORDERS OF PHOSPHORUS METABOLISM
[2018-03-29] MEDS ORDERED: ATORVASTATIN CA 40 MG TABLET (FP) PO SCH (22:00)
[2018-03-30] MEDS ORDERED: PT OWN MED DRAWER 7, Y5N ONE (04:09)
[2018-03-30] MEDS: NAPH,MB-DB/K PH,MBDB POWDER PACKET PO SCH ×2 (05:45→13:19)
[2018-03-30 07:32] LABS: BASO % 0.8 % (0-2.0); EOS % 5.6 % (0-4.5); HEMATOCRIT 37.9 % (32.4-45.2); HEMOGLOBIN 12.3 GM/dL (10.7-15.3); LYMPH % 19.5 % (8-40); MCHC 32.6 g/dl (32.0-36.0); MEAN PLT VOLUME 8.6 fl (7.5-11.1); MONO % 8.2 % (3.8-10.2); NEUT % 65.9 % (42.8-82.8); PLATELET COUNT 203 K/MM3 (134-434); RBC 4.26 M/mm3 (3.60-5.2); RDW 13.2 % (11.6-15.6); WHITE BLOOD COUNT 6.9 K/mm3 (4.0-10.0)
[2018-03-30 08:03] LABS: ANION GAP 6 MMOL/L (8-16); BLOOD UREA NITROGEN 4 mg/dL (7-18); CALCIUM 7.6 mg/dL (8.5-10.1); CHLORIDE 103 mmol/L (98-107); CO2 29 mmol/L (21-32); CREATININE 0.6 mg/dL (0.55-1.3); GLUCOSE,RANDOM 90 mg/dL (74-106); MAGNESIUM 1.9 mg/dL (1.8-2.4); PHOSPHOROUS 2.5 mg/dL (2.5-4.9); POTASSIUM 4.1 mmol/L (3.5-5.1); SODIUM 138 mmol/L (136-145)
[2018-03-30] MEDS: metoPROLOL SUCCINATE 25 MG TAB.SR.24H (FP) PO SCH (09:32)
[2018-03-30] MEDS: ASPIRIN 81 MG CHEWABLE TABLETS PO SCH (09:32)
[2018-03-30] MEDS ORDERED: LOPERAMIDE HCL 2 MG CAPSULE PO ONE ×2 (12:46)
--- NOTE | 2018-03-30 12:47 | DS ---
Physical Examination Vital Signs: Vital Signs Temperature 97.8 F 03/30/18 09:48 Pulse Rate 98 H 03/30/18 09:48 Respiratory Rate 16 03/30/18 09:48 Blood Pressure 140/68 03/30/18 09:48 O2 Sat by Pulse Oximetry (%) 99 03/30/18 09:00 Constitutional: Yes: Well Nourished, No Distress, Calm Cardiovascular: Yes: WNL, Regular Rate and Rhythm Respiratory: Yes: WNL, Regular, CTA Bilaterally. No: Accessory Muscle Use, Tachypnea, Wheezes Gastrointestinal: Yes: WNL, Normal Bowel Sounds, Soft, Abdomen, Obese, Hernia. No: Distention, Tenderness, Vomiting Renal/: Yes: WNL Extremities: Yes: WNL Edema: No Neurological: Yes: WNL, Alert, Oriented Psychiatric: Yes: WNL, Alert, Oriented Labs: CBC, BMP 03/30/18 06:30 03/30/18 06:30 Discharge Summary Reason For Visit: SMALL BOWEL OBSTRUCTION Current Active Problems CAD (coronary artery disease) (Acute) HTN (hypertension) (Acute) Hypokalemia (Acute) Hypophosphatemia (Acute) SBO (small bowel obstruction) (Acute) UTI (urinary tract infection) (Acute) Ventral hernia (Acute) Hospital Course: 82 year old female admitted for SBO. Surgery evaluated, resolved w/ conservative management. Pt tolerating regular diet, denies any abd pain, n/v. 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 Case discussed with surgery, pt has been cleared for discharge. Recommend outpt follow up with surgery in 2 weeks. Otherwise, pt is in no acute distress, vitals stable, labs unremarkable. Pt is medically stable for discharge home. Follow up as directed. 32 minutes spent in discharge planning Condition: Improved - Instructions Diet, Activity, Other Instructions: continue home meds ambulate/diet as tolerated follow up as directed Referrals: Travon Plunkett MD [Staff Physician] - 2 Weeks Owen Garcia MD [Primary Care Provider] - 1 Week Disposition: VNS/HOME HEALTH CARE - Home Medications Comprehensive Discharge Medication List: Ambulatory Orders Aspirin [ASA -] 81 mg PO DAILY 02/25/14 Atorvastatin Ca [Lipitor] 40 mg PO HS 02/25/14 Metoprolol Succinate [Toprol XL -] 50 mg PO DAILY 02/25/14
[2018-03-30 15:18] VITALS: BP 118/63; PULSE 80; TEMP 98.2
== END 2018-03-30 17:26 | disposition home health service (06) | DRG 389 ==
LOC: JER 12:39 → JERBED 18:03 → J8W 03-27 23:13
PROVIDERS: ADMIT Internal Medicine; ATTEND Nurse Practitioner Family
DX: K56.600 Partial intestinal obstruction, unspecified as to cause (principal); N39.0 Urinary tract infection, site not specified; N17.9 Acute kidney failure, unspecified; E86.0 Dehydration; I10 Essential (primary) hypertension; I25.10 Atherosclerotic heart disease of native coronary artery without angina pectoris; D72.829 Elevated white blood cell count, unspecified; K43.9 Ventral hernia without obstruction or gangrene; E83.39 Other disorders of phosphorus metabolism; E87.6 Hypokalemia; E83.42 Hypomagnesemia; Z98.61 Coronary angioplasty status
CPT/HCPCS: 36415; 71045-TC-FY; 74019-TC-FY; 74177-TC; 80048; 80053; 81003; 81015; 82550; 83605; 83690; 83735; 84100; 84484; 85025; 85610; 85730; 86850; 86900; 86901; 87086; 87324; 87449; 93005; 93010; 97116-GP; 97161-GP; 99285-25; J7030

== ENCOUNTER 2018-07-05 11:09 | Emergency (ER) | payer OTHER, MEDICARE ==
[2018-07-05 11:42] VITALS: TEMP 97.6; BMI 29.9
--- NOTE | 2018-07-05 11:47 | PDOC ---
History of Present Illness - General History Source: Patient Exam Limitations: No Limitations - History of Present Illness Initial Comments: 07/05/18 15:42 CC: Left pelvic pain History of present illness: 83 yo F presenting with complaint of pain in left groin for several days. She states the pain is exacerbated with extension and flexion of the hip, arising from seated position. She states she had a recent bowel obstruction and is concerned about recurrence. She was sent in by her PMD for this reason to obtain a CT scan and r/o recurrent obstruction. Review of systems: Denies nausea, vomiting, diarrhea, abdominal pain, fevers/chills. Appetite is normal. Remainder of systemts reviewed and negative. Past Medical Hx: Bowel obstruction from hernia (03/2017). Chronic incontinence s /p implantable stimulator. HLD. HTN, 81mg aspiring prophylaxis. Social Hx: denies tobacco, ETOH or illicit drugs. No sign of dementia and lives alone. Cares for herself. No disabilities. Family Hx: reviewed and noncontributory Physical Exam: AAOx3 no acute distress, cooperative cheerful Afebrile. Vital signs normal No pallor or icterus HEENT clear Neck supple without bruit mas or nodes Chest clear, full BS bilaterally CV regular without murmur rubs or gallops, pulses full and symmetric no JVD, edema, or bruits Abdomen non distended. BS normal in character. Soft without mass, tenderness, or organomegaly. There is however, tenderness along the pelvic brim and in left groin. Although there is good ROM of the hip, there is pain at the extremes of flexion. Neuro: C2-12 grossly intact, strength full and symmetric. No focal deficits, gait stable and unimpaired. Impression & Plan: This is most likely is a muscle strain of left groin. There appears to be no abdominal tenderness, guarding or rebound suggestive of intra abdominal processes. Xray, of the hip and pelvis, are negative and because of prior bowel obstruction and hernia, repeat CT scan of Abdomen and pelvis. <Priscilla David - Last Filed: 07/05/18 15:42> <Yahir Sheehan - Last Filed: 07/05/18 16:53> - General Chief Complaint: Pain Stated Complaint: PT SENT BY PMD FOR CAT SCAN PAIN IN LEFT GROIN Time Seen by Provider: 07/05/18 11:31 Past History <Priscilla David - Last Filed: 07/05/18 15:42> - Past Medical History Cancer: Yes (UTERINE; volvar) Cardiac Disorders: Yes (2 STENTS, 2006 and 2009) COPD: No Disorders: Yes (FREQUENCY & INCONTINENCE) Hypercholesterolemia: Yes Other medical history: SMALL BOWEL OBSTRUCTION - Surgical History Appendectomy: Yes Cardiac Surgery: Yes ( STENTS) Cholecystectomy: Yes - Immunization History TDAP Vaccination: Yes Immunization Up to Date: Yes - Suicide/Smoking/Psychosocial Hx Smoking Status: No Smoking History: Former smoker Have you smoked in the past 12 months: No Number of Cigarettes Smoked Daily: 0 If you are a former smoker, when did you quit?: 32 YEARS Information on smoking cessation initiated: No Hx Alcohol Use: Yes (OCCAssional) Drug/Substance Use Hx: No Substance Use Type: Alcohol Hx Substance Use Treatment: No <Yahir Sheehan - Last Filed: 07/05/18 16:53> - Past Medical History Allergies/Adverse Reactions: Allergies Allergy/AdvReac Type Severity Reaction Status Date / Time Penicillins Allergy Rash Verified 07/05/18 11:19 Home Medications: Ambulatory Orders Aspirin [ASA -] 81 mg PO DAILY 02/25/14 Atorvastatin Ca [Lipitor] 40 mg PO HS 02/25/14 Metoprolol Succinate [Toprol XL -] 50 mg PO DAILY 02/25/14 Trimethoprim 100 mg PO DAILY 07/05/18 *Physical Exam - Vital Signs Last Vital Signs Temp Pulse Resp BP Pulse Ox 97.6 F 76 16 115/50 L 99 07/05/18 11:13 07/05/18 11:13 07/05/18 11:13 07/05/18 11:13 07/05/18 11:13 <Priscilla David - Last Filed: 07/05/18 15:42> - Vital Signs Last Vital Signs Temp Pulse Resp BP Pulse Ox 97.6 F 76 16 115/50 L 99 07/05/18 11:13 07/05/18 11:13 07/05/18 11:13 07/05/18 11:13 07/05/18 11:13 <Yahir Sheehan - Last Filed: 07/05/18 16:53> ED Treatment Course - LABORATORY CBC & Chemistry Diagram: 07/05/18 13:38 07/05/18 13:51 - ADDITIONAL ORDERS Additional order review: Laboratory Results 07/05/18 13:51 Sodium 134 L Potassium 4.4 Chloride 104 Carbon Dioxide 23 Anion Gap 7 L BUN 20 H Creatinine 0.8 Creat Clearance w eGFR 68.50 Random Glucose 85 Calcium 8.4 L Total Bilirubin 0.8 AST 22 ALT 20 Alkaline Phosphatase 52 Total Protein 6.7 Albumin 3.6 07/05/18 13:38 RBC 4.14 MCV 90.0 MCHC 33.5 RDW 13.0 MPV 8.5 Neutrophils % 59.3 Lymphocytes % 28.9 Monocytes % 7.6 Eosinophils % 3.5 Basophils % 0.7 <Priscilla David - Last Filed: 07/05/18 15:42> - LABORATORY CBC & Chemistry Diagram: 07/05/18 13:38 07/05/18 13:51 <Yahir Sheehan - Last Filed: 07/05/18 16:53> Medical Decision Making - Medical Decision Making 07/05/18 16:02 CBC< Chemistries no significant abn. WBC not elevated, and no shift. X-ray hip/pelvis neg. CT:neg Most consistent groin muscle strain. Symptomatic tmt and F/U 07/05/18 16:53 <Yahir Sheehan - Last Filed: 07/05/18 16:53> *DC/Admit/Observation/Transfer - Attestations Scribe Attestion: 07/05/18 15:44 Documentation prepared by Priscilla David, acting as outside medical sales representative for Yahir Campbell MD <Priscilla David - Last Filed: 07/05/18 15:42> - Discharge Dispostion Decision to Admit order: No <Yahir Sheehan - Last Filed: 07/05/18 16:53> Diagnosis at time of Disposition: Inguinal muscle strain Qualifiers: Encounter type: initial encounter Qualified Code(s): S39.013A - Strain of muscle, fascia and tendon of pelvis, initial encounter - Discharge Dispostion Disposition: HOME Condition at time of disposition: Stable - Referrals Referrals: Owen Garcia MD [Primary Care Provider] - 2 Days - Patient Instructions Printed Discharge Instructions: Groin Strain Additional Instructions: Rest, gentle stretching, warm compresses, Tylenol. Return ER if pain worse or nausea, vomiting,diarrhea, fever/chills. - Post Discharge Activity
[2018-07-05 14:21] LABS: BASO % 0.7 % (0-2.0); EOS % 3.5 % (0-4.5); HEMATOCRIT 37.2 % (32.4-45.2); HEMOGLOBIN 12.5 GM/dl (10.7-15.3); LYMPH % 28.9 % (8-40); MCH 30.1 pg (25.7-33.7); MCHC 33.5 g/dl (32.0-36.0); MEAN PLT VOLUME 8.5 fl (7.5-11.1); MONO % 7.6 % (3.8-10.2); NEUT % 59.3 % (42.8-82.8); PLATELET COUNT 196 K/MM3 (134-434); RBC 4.14 M/mm3 (3.60-5.2)
[2018-07-05 14:28] LABS: ALBUMIN 3.6 g/dl (3.4-5.0); ALK PHOS 52 U/L (45-117); ANION GAP 7 MMOL/L (8-16); BILIRUBIN,TOTAL 0.8 mg/dl (0.2-1); BLOOD UREA NITROGEN 20 mg/dl (7-18); CALCIUM 8.4 mg/dl (8.5-10); CHLORIDE 104 mmol/L (98-107); CO2 23 mmol/L (21-32); CREATININE 0.8 mg/dl (0.55-1.3); GLUCOSE,RANDOM 85 mg/dl (74-106); POTASSIUM 4.4 mmol/L (3.5-5.1); SGOT/AST 22 U/L (15-37); SGPT/ALT 20 U/L (13-61); SODIUM 134 mmol/L (136-145); TOT PROT 6.7 g/dl (6.4-8.2)
[2018-07-05 16:45] VITALS: BP 96/73; PULSE 88
== END 2018-07-05 16:45 | disposition home or self-care (01) ==
LOC: FER 11:09
DX: S39.013A Strain of muscle, fascia and tendon of pelvis, initial encounter (principal); X58.XXXA Exposure to other specified factors, initial encounter; Y93.89 Activity, other specified; Y92.89 Other specified places as the place of occurrence of the external cause; Z95.5 Presence of coronary angioplasty implant and graft; Z85.42 Personal history of malignant neoplasm of other parts of uterus; R35.0 Frequency of micturition; K56.609 Unspecified intestinal obstruction, unspecified as to partial versus complete obstruction; E78.00 Pure hypercholesterolemia, unspecified; Z87.891 Personal history of nicotine dependence
CPT/HCPCS: 36415; 73523-TC-FY; 74177-TC; 80053; 81003; 85025; 99282-25

== ENCOUNTER 2018-07-21 19:27 | Emergency (ER) | payer OTHER, MEDICARE ==
--- NOTE | 2018-07-21 20:10 | PDOC ---
Rapid Medical Evaluation Time Seen by Provider: 07/21/18 20:09 Medical Evaluation: Allergies Allergy/AdvReac Type Severity Reaction Status Date / Time Penicillins Allergy Rash Verified 07/05/18 11:19 07/21/18 20:09 I performed a brief in-person evaluation of this patient. Chief complaint: Vaginal swelling and pain. Hx vulvar cancer s/p RTX, prone to infections. Pertinent physical exam findings: Deferred. T 99.1. I have ordered the following: UA/culture Patient will proceed to the ED for further evaluation. Discharge Disposition - Diagnosis Vaginal symptom - Referrals - Patient Instructions - Post Discharge Activity
[2018-07-21 20:12] VITALS: BP 112/80; PULSE 77; TEMP 99.1; BMI 27.6
--- NOTE | 2018-07-21 20:41 | PDOC ---
History of Present Illness - General Chief Complaint: Urinary Problem Stated Complaint: PAIN Time Seen by Provider: 07/21/18 20:09 - History of Present Illness Initial Comments: 07/21/18 20:38 83 yo F with h/o HTN, HLD, SBO, Lichen Sclerosis, Vulvar cancer 2015 s/p radiation therapy, who p/w vulvar irritation. Patient reports vulvar pruritus, irritation, burning x 1 week. Worse with sitting, and pressure. Patient attempted OTC A&D ointment, and colloidal oatmeal/Alveeno with no improvement in symptoms. Also reports worsening dysuria, and increased urinary frequency x 1 week. Reports increased moisture around vagina and perineum d/t incontinence, frequency of urination. Patient follows with oncology at [facility]. Has apt. scheduled this Tuesday07/24/18 for symptoms. Patient denies FERNÁNDEZ, vision change, palpitations, cough, wheezing, orthopena, PND , leg swelling/pain, N/V, F,C, CP, SOB, hematuria, vaginal bleeding, BPR, abdominal pain, diarrhea, constipation, lightheadedness, weakness, sensory changes. PMHx: as noted above ROS: as noted Allergies: PCN Past History - Past Medical History Allergies/Adverse Reactions: Allergies Allergy/AdvReac Type Severity Reaction Status Date / Time Penicillins Allergy Rash Verified 07/05/18 11:19 Home Medications: Ambulatory Orders Aspirin [ASA -] 81 mg PO DAILY 02/25/14 Atorvastatin Ca [Lipitor] 40 mg PO HS 02/25/14 Metoprolol Succinate [Toprol XL -] 50 mg PO DAILY 02/25/14 Trimethoprim 100 mg PO DAILY 07/05/18 Clobetasol Propionate 50 gm TP HS #1 foam 07/21/18 Sulfamethoxazole/Trimethoprim [Bactrim Ds -] 1 tab PO BID #14 tablet 07/21/18 Cancer: Yes (UTERINE; volvar) Cardiac Disorders: Yes (2 STENTS, 2006 and 2009) COPD: No Disorders: Yes (FREQUENCY & INCONTINENCE) Hypercholesterolemia: Yes - Surgical History Appendectomy: Yes Cardiac Surgery: Yes ( STENTS) Cholecystectomy: Yes - Immunization History TDAP Vaccination: Yes Immunization Up to Date: Yes - Suicide/Smoking/Psychosocial Hx Smoking Status: No Smoking History: Unknown if ever smoked Have you smoked in the past 12 months: No Number of Cigarettes Smoked Daily: 0 If you are a former smoker, when did you quit?: 32 YEARS Information on smoking cessation initiated: No Hx Alcohol Use: No Drug/Substance Use Hx: No Substance Use Type: Alcohol Hx Substance Use Treatment: No Review of Systems - Review of Systems Comments:: 07/21/18 20:39 GENERAL/CONSTITUTIONAL: No fever or chills. No weakness. HEAD, EYES, EARS, NOSE AND THROAT: No change in vision. No ear pain or discharge. No sore throat. CARDIOVASCULAR: No chest pain or shortness of breath RESPIRATORY: No cough, wheezing, or hemoptysis. GASTROINTESTINAL: No nausea, vomiting, diarrhea or constipation. GENITOURINARY: No dysuria, frequency, or change in urination. MUSCULOSKELETAL: No joint or muscle swelling or pain. No neck or back pain. SKIN: No rash NEUROLOGIC: No headache, vertigo, loss of consciousness, or change in strength/ sensation. ENDOCRINE: No increased thirst. No abnormal weight change HEMATOLOGIC/LYMPHATIC: No anemia, easy bleeding, or history of blood clots. ALLERGIC/IMMUNOLOGIC: No hives or skin allergy. *Physical Exam - Vital Signs Last Vital Signs Temp Pulse Resp BP Pulse Ox 99.1 F 77 20 112/80 95 07/21/18 20:08 07/21/18 20:08 07/21/18 20:08 07/21/18 20:08 07/21/18 20:08 - Physical Exam Comments: 07/21/18 20:39 GENERAL: Awake, alert, and fully oriented, in no acute distress HEAD: No signs of trauma, normocephalic, atraumatic EYES: PERRLA, EOMI, sclera anicteric, conjunctiva clear ENT: Auricles normal inspection, hearing grossly normal, nares patent, oropharynx clear without exudates. Moist mucosa NECK: Normal ROM, supple, no lymphadenopathy, JVD, or masses LUNGS: No distress, speaks full sentences, clear to auscultation bilaterally HEART: Regular rate and rhythm, normal S1 and S2, no murmurs, rubs or gallops, peripheral pulses normal and equal bilaterally. ABDOMEN: Soft, nontender, normoactive bowel sounds. No guarding, no rebound. No masses GENITORUINARY: White, atrophic plaques surrounding vuvla on labia majora, with surrounding erythema. Absent discharge/drainage, fluctuance, streaking, or inguinal lymphadenopathy. Chaperoned by nurse at bedside. EXTREMITIES : Normal inspection, Normal range of motion, no edema. No clubbing or cyanosis. NEUROLOGICAL: Cranial nerves II through XII grossly intact. Normal speech, normal gait, no focal sensorimotor deficits SKIN: Warm, Dry, normal turgor, no rashes or lesions noted Medical Decision Making - Medical Decision Making 07/21/18 20:40 83 yo F with h/o HTN, HLD, SBO, Lichen Sclerosis, Vulvar cancer 2015 s/p radiation therapy, who p/w vulvar pruritus, irritation, burning x 1 week. Increased urinary frequency of urination. Vitals wnl, AF, A&Ox3. Physical exam notable for white, atrophic plaques surrounding vuvla on labia majora, with surrounding erythema. Denies palpitations, cough, wheezing, orthopena, PND, leg swelling/pain, N/V, F,C, CP, SOB, hematuria, vaginal bleeding, BPR, abdominal pain, diarrhea, constipation, lightheadedness, weakness, sensory changes. Patient follows with oncology at [facility]. Has apt. scheduled this Tuesday07/24/18 for symptoms. Possible UTI, Lichen Sclerosis flareup. Possible cellulitis with absent streaking, lymphadenopathy, 0/4 SIRS criteria 07/21/18 21:28 ED Course: Bacrtim and Clobatesol sent to pharmacy 07/21/18 22:03 Laboratory Tests 07/21/18 20:00 Urine Color Yellow Urine Blood Negative Urine Nitrite Negative Ur Leukocyte Esterase 1+ H Urine WBC (Auto) 9 Urine RBC (Auto) 4.9 Urine Bacteria (Auto) 41.7 07/21/18 22:5 1Betamethasone cream applied topical Patient stable for d/c with return precautions. Advised to f/u oncologist Tuesday as scheduled., 07-23-18 *DC/Admit/Observation/Transfer Diagnosis at time of Disposition: Vaginal symptom - Prescriptions Prescriptions: Clobetasol Propionate 50 gm TP HS #1 foam Sulfamethoxazole/Trimethoprim [Bactrim Ds -] 1 tab PO BID #14 tablet - Referrals Referrals: Owen Garcia MD [Primary Care Provider] - - Patient Instructions Printed Discharge Instructions: DI for Urinary Tract Infection (UTI) Additional Instructions: Please return to the emergency department with any new or worsening symptoms or concerns. Please follow up with your primary care physician within 72 hours. Please apply clabtesol nightly to affected area. Take Bactrim two times daily for 7 days. - Post Discharge Activity
[2018-07-21 21:05] LABS: EPI CELLS 1.8 /HPF (0-5/HPF); URINE APPEARANCE CLEAR; URINE BACTERIA 41.7 /hpf (NEGATIVE); URINE BILIRUBIN NEGATIVE (NEGATIVE); URINE CASTS 4 /lpf (0-8); URINE COLOR YELLOW; URINE GLUCOSE (UA) NEGATIVE (NEGATIVE); URINE KETONE NEGATIVE (NEGATIVE); URINE LEUK ESTERASE 1+ (NEGATIVE); URINE NITRITE NEGATIVE (NEGATIVE); URINE PROTEIN NEGATIVE (NEGATIVE); URINE UROBILINOGEN 0.2 mg/dL (0.2-1.0); URINE WBC 9 /hpf (0-5)
[2018-07-21 21:39] LABS: URINE RBC 4.9 /hpf (0-4); YEAST RARE (NEGATIVE)
[2018-07-21] MEDS ORDERED: BETAMETHASONE DIPR 0.05% OINT 45 GM TUBE TP ONE (22:22)
[2018-07-21] MEDS ORDERED: BETAMETHASONE DIPR 0.05% OINTMENT 15 GM TUBE TP ONE (22:45)
== END 2018-07-21 23:07 | disposition home or self-care (01) ==
LOC: JER 19:27
DX: N39.0 Urinary tract infection, site not specified (principal); I25.10 Atherosclerotic heart disease of native coronary artery without angina pectoris; I10 Essential (primary) hypertension; Z95.5 Presence of coronary angioplasty implant and graft; Z85.44 Personal history of malignant neoplasm of other female genital organs
CPT/HCPCS: 81003; 87086; 99282-25

== ENCOUNTER 2020-03-19 09:56 | Emergency (ER) | payer OTHER, MEDICARE | END 2020-03-19 12:45 | disposition home or self-care (01) | LOC: JVIRT 09:56 | DX: Z11.59 Encounter for screening for other viral diseases (principal) | CPT/HCPCS: C9803; Q3014-GT; U0003 ==

== ENCOUNTER 2020-07-30 10:07 | Inpatient (IN) | payer OTHER, MEDICARE ==
[2020-07-30] MEDS ORDERED: ONDANSETRON 4 MG/2 ML VIAL IVPUSH ONE (10:43)
[2020-07-30] MEDS ORDERED: SODIUM CHLORIDE 0.9% 1000 ML INFUS.BAG IV ONE (10:43)
[2020-07-30] MEDS ORDERED: FAMOTIDINE 20 MG/50 ML IVPB 20 MG/50 ML MG IVPB ONE ×2 (10:43→11:15)
[2020-07-30] MEDS ORDERED: ACETAMINOPHEN 1000 MG/100 ML VIAL (NON FORMULARY) IVPB ONE (10:43)
[2020-07-30] MEDS ORDERED: ACETAMINOPHEN INJECTION 100 ML IVPB ONE (11:15)
[2020-07-30] MEDS ORDERED: ONDANSETRON 4 MG/2 ML VIAL ONE (11:17)
[2020-07-30 11:28] LABS: VENOUS BASE EXCESS -0.3 mmol/L (-2-2); VENOUS O2 SATURATION 45.8 % (70-80); VENOUS PCO2 46.7 mmHg (38-52); VENOUS PH 7.358 (7.310-7.410)
[2020-07-30 11:34] LABS: BASO % 0.6 % (0-2.0); EOS % 1.6 % (0-4.5); HEMATOCRIT 39.9 % (32.4-45.2); HEMOGLOBIN 13.4 GM/dL (10.7-15.3); LYMPH % 18.3 % (8-40); MCH 29.9 pg (25.7-33.7); MCHC 33.6 g/dl (32.0-36.0); MEAN CELL VOLUME 88.9 fl (80-96); MEAN PLT VOLUME 8.1 fl (7.5-11.1); MONO % 7.6 % (3.8-10.2); NEUT % 71.9 % (42.8-82.8); PLATELET COUNT 214 K/MM3 (134-434); RBC 4.49 M/mm3 (3.60-5.2); RDW 13.6 % (11.6-15.6); WHITE BLOOD COUNT 6.8 K/mm3 (4.0-10.0)
[2020-07-30 11:49] LABS: INR 0.92 (0.83-1.09); PROTHROMBIN TIME (PATIENT) 11.4 SEC (9.7-13.0)
[2020-07-30 11:50] LABS: CHLORIDE 100 mmol/L (98-107); SODIUM 133 mmol/L (136-145)
[2020-07-30 11:52] LABS: ACTIVATED PTT 24.2 SECONDS (25.2-36.5)
[2020-07-30 11:53] LABS: ALBUMIN 3.7 g/dl (3.4-5.0); ANION GAP 7 MMOL/L (8-16); CALCIUM 8.6 mg/dL (8.5-10.1); CO2 25 mmol/L (21-32); GLUCOSE,RANDOM 95 mg/dL (74-106); LIPASE 144 U/L (73-393); MAGNESIUM 2.2 mg/dL (1.8-2.4)
[2020-07-30 11:55] LABS: CREATININE 1.1 mg/dL (0.55-1.3); SGOT/AST 23 U/L (15-37); SGPT/ALT 26 U/L (13-61)
[2020-07-30 11:58] LABS: BILIRUBIN,TOTAL 0.7 mg/dL (0.2-1); TOT PROT 7.9 g/dl (6.4-8.2)
[2020-07-30 11:59] LABS: ALK PHOS 55 U/L (45-117)
[2020-07-30 13:11] LABS: URINE APPEARANCE CLEAR; URINE BILIRUBIN NEGATIVE (NEGATIVE); URINE COLOR YELLOW; URINE GLUCOSE (UA) NEGATIVE (NEGATIVE); URINE KETONE NEGATIVE (NEGATIVE); URINE LEUK ESTERASE NEGATIVE (NEGATIVE); URINE NITRITE NEGATIVE (NEGATIVE); URINE PROTEIN NEGATIVE (NEGATIVE); URINE UROBILINOGEN 0.2 mg/dL (0.2-1.0)
[2020-07-30] MEDS ORDERED: ACETAMINOPHEN 325 MG TABLET (FP) PO ONE (19:55)
[2020-07-30] MEDS ORDERED: ACETAMINOPHEN 325 MG TABLET (FP) ONE (19:57)
[2020-07-30] MEDS: SODIUM CHLORIDE 1,000 ML IV SCH (20:08)
[2020-07-31] MEDS: SODIUM CHLORIDE 1,000 ML IV SCH ×2 (02:36→17:42)
[2020-07-31] MEDS ORDERED: ACETAMINOPHEN 1000 MG/100 ML VIAL (NON FORMULARY) IVPB ONE (02:45)
[2020-07-31 04:17] VITALS: BMI 29.2
[2020-07-31] MEDS ORDERED: IBUPROFEN 800 MG/8 ML IJ IVPB ONE (05:45)
[2020-07-31 08:22] LABS: BASO % 0.7 % (0-2.0); EOS % 2.1 % (0-4.5); HEMATOCRIT 37.5 % (32.4-45.2); HEMOGLOBIN 12.2 GM/dL (10.7-15.3); LYMPH % 16.9 % (8-40); MCH 29.4 pg (25.7-33.7); MCHC 32.5 g/dl (32.0-36.0); MEAN CELL VOLUME 90.4 fl (80-96); MEAN PLT VOLUME 8.2 fl (7.5-11.1); MONO % 7.3 % (3.8-10.2); PLATELET COUNT 191 K/MM3 (134-434); RBC 4.15 M/mm3 (3.60-5.2); RDW 13.4 % (11.6-15.6); WHITE BLOOD COUNT 5.9 K/mm3 (4.0-10.0)
[2020-07-31 08:54] LABS: ALBUMIN 3.5 g/dl (3.4-5.0); BLOOD UREA NITROGEN 13.9 mg/dL (7-18)
[2020-07-31 08:56] LABS: BILIRUBIN,TOTAL 0.9 mg/dL (0.2-1); TOT PROT 6.8 g/dl (6.4-8.2)
[2020-07-31 08:57] LABS: CREATININE 0.8 mg/dL (0.55-1.3); PHOSPHOROUS 2.8 mg/dL (2.5-4.9)
[2020-07-31] MEDS: ENOXAPARIN NA (PORCINE) 40 MG/0.4 ML DISP.SYRIN SQ SCH (11:15)
[2020-07-31] MEDS: metoPROLOL SUCCINATE 25 MG TAB.SR.24H (FP) PO SCH (11:15)
[2020-07-31] MEDS ORDERED: POTASSIUM CHLORIDE ORAL LIQUID 20 MEQ/15 ML PO ONE (14:38)
[2020-07-31] MEDS ORDERED: ATORVASTATIN CA 40 MG TABLET (FP) PO SCH (22:00)
[2020-07-31] MEDS ORDERED: DONEPEZIL HCL 5 MG TABLET (FP) PO SCH (22:00)
[2020-07-31] MEDS ORDERED: ASPIRIN 81 MG CHEWABLE TABLETS PO ONE (22:21)
[2020-08-01 08:53] LABS: BASO % 0.6 % (0-2.0); HEMATOCRIT 36.7 % (32.4-45.2); HEMOGLOBIN 12.5 GM/dL (10.7-15.3); LYMPH % 18.5 % (8-40); MCH 30.1 pg (25.7-33.7); MCHC 33.9 g/dl (32.0-36.0); MEAN CELL VOLUME 88.7 fl (80-96); MEAN PLT VOLUME 7.9 fl (7.5-11.1); NEUT % 69.9 % (42.8-82.8); PLATELET COUNT 214 K/MM3 (134-434); RBC 4.14 M/mm3 (3.60-5.2); RDW 13.2 % (11.6-15.6); WHITE BLOOD COUNT 6.6 K/mm3 (4.0-10.0)
[2020-08-01 09:24] LABS: ALBUMIN 3.4 g/dl (3.4-5.0); BLOOD UREA NITROGEN 6.9 mg/dL (7-18); CALCIUM 8.1 mg/dL (8.5-10.1)
[2020-08-01 09:27] LABS: CREATININE 0.6 mg/dL (0.55-1.3)
[2020-08-01 09:28] LABS: BILIRUBIN,TOTAL 0.6 mg/dL (0.2-1); TOT PROT 6.8 g/dl (6.4-8.2)
[2020-08-01] MEDS: metoPROLOL SUCCINATE 25 MG TAB.SR.24H (FP) PO SCH (09:56)
[2020-08-01] MEDS: ENOXAPARIN NA (PORCINE) 40 MG/0.4 ML DISP.SYRIN SQ SCH (09:56)
[2020-08-01 11:51] VITALS: TEMP 98.6
[2020-08-01 15:48] VITALS: BP 154/84; PULSE 90
== END 2020-08-01 16:29 | disposition home or self-care (01) | DRG 395 ==
LOC: JER 10:07 → JERBED 15:23 → J5S 07-31 02:34
PROVIDERS: ADMIT Internal Medicine; ATTEND Internal Medicine
DX: K43.6 Other and unspecified ventral hernia with obstruction, without gangrene (principal); F03.90 Unspecified dementia, unspecified severity, without behavioral disturbance, psychotic disturbance, mood disturbance, and anxiety; R19.7 Diarrhea, unspecified; I10 Essential (primary) hypertension; E78.5 Hyperlipidemia, unspecified
CPT/HCPCS: 36415; 71045-TC-FY; 74019-TC-FY; 74177-TC; 80053; 81003; 82550; 82553; 82803; 83605; 83690; 83735; 84100; 84443; 84484; 85025; 85610; 85730; 87086; 87186; 87324; 87449; 93005; 93010; 99285-25; C9803; J0131; Q9967; U0003; U0005

== ENCOUNTER 2021-12-03 10:18 | Inpatient (IN) | payer OTHER, MEDICARE ==
[2021-12-03] MEDS ORDERED: SODIUM CHLORIDE 0.9% 500 ML INFUS.BAG IV ONE (10:48)
[2021-12-03] MEDS ORDERED: ACETAMINOPHEN 1000 MG/100 ML BAG IVPB ONE (10:55)
[2021-12-03] MEDS ORDERED: morphine CARPU-JECT 2 MG/1 ML DISP.SYRIN IVPUSH ONE (11:17)
[2021-12-03] MEDS ORDERED: ACETAMINOPHEN INJECTION 100 ML IVPB ONE (11:37)
[2021-12-03 11:55] LABS: VENOUS BASE EXCESS 2.2 mmol/L (-2-2); VENOUS O2 SATURATION 34.3 % (70-80); VENOUS PCO2 48.3 mmHg (38-52); VENOUS PH 7.382 (7.310-7.410)
[2021-12-03 11:59] LABS: BASO % 0.1 % (0-2.0); HEMATOCRIT 40.2 % (32.4-45.2); HEMOGLOBIN 13.6 GM/dL (10.7-15.3); LYMPH % 7.3 % (8-40); MCH 30.1 pg (25.7-33.7); MCHC 33.8 g/dl (32.0-36.0); MEAN PLT VOLUME 8.2 fl (7.5-11.1); MONO % 5.5 % (3.8-10.2); NEUT % 87.1 % (42.8-82.8); PLATELET COUNT 243 10^3/uL (134-434); RBC 4.52 M/mm3 (3.60-5.2); RDW 13.6 % (11.6-15.6); WHITE BLOOD COUNT 12.4 K/mm3 (4.0-10.0)
[2021-12-03 12:08] LABS: INR 1.02 (0.83-1.09); PROTHROMBIN TIME (PATIENT) 11.7 SEC (9.7-13.0)
[2021-12-03 12:11] LABS: ACTIVATED PTT 26.8 SECONDS (25.2-36.5)
[2021-12-03 12:20] LABS: ALBUMIN 3.4 g/dl (3.4-5.0); BLOOD UREA NITROGEN 28.5 mg/dL (7-18); CALCIUM 9.2 mg/dL (8.5-10.1)
[2021-12-03 12:24] LABS: CREATININE 1.1 mg/dL (0.55-1.3)
[2021-12-03 12:25] LABS: BILIRUBIN,TOTAL 1.6 mg/dL (0.2-1); TOT PROT 7.5 g/dl (6.4-8.2)
[2021-12-03 12:28] LABS: N-TERMINAL BNP 635.9 pg/ml (5-450)
[2021-12-03] MEDS ORDERED: ONDANSETRON 4 MG/2 ML VIAL IVPUSH ONE (14:48)
[2021-12-03] MEDS ORDERED: ONDANSETRON 4 MG/2 ML VIAL ONE (14:50)
[2021-12-03] MEDS ORDERED: SODIUM CHLORIDE 1,000 ML IV SCH (15:45)
[2021-12-03] MEDS ORDERED: ACETAMINOPHEN 1000 MG/100 ML BAG IVPB PRN (16:32)
[2021-12-03 19:46] LABS: URINE APPEARANCE CLEAR; URINE BILIRUBIN NEGATIVE (NEGATIVE); URINE COLOR YELLOW; URINE GLUCOSE (UA) NEGATIVE (NEGATIVE); URINE KETONE NEGATIVE (NEGATIVE)
[2021-12-03 19:47] LABS: URINE LEUK ESTERASE NEGATIVE (NEGATIVE); URINE NITRITE NEGATIVE (NEGATIVE); URINE PROTEIN 30 (NEGATIVE); URINE UROBILINOGEN 0.2 mg/dL (0.2-1.0)
[2021-12-03] MEDS ORDERED: METOPROLOL TARTRATE 5 MG/5 ML VIAL IVPB SCH (22:00)
[2021-12-03] MEDS: METOPROLOL TARTRATE 5 MG/5 ML VIAL IVPB SCH (22:57)
[2021-12-04] MEDS ORDERED: ACETAMINOPHEN INJECTION 100 ML IVPB ONE (04:31)
[2021-12-04] MEDS ORDERED: ONDANSETRON 4 MG/2 ML VIAL ONE (04:31)
[2021-12-04] MEDS: ONDANSETRON 4 MG/2 ML VIAL IVPUSH PRN (04:36)
[2021-12-04 06:55] LABS: BASO % 0.5 % (0-2.0); EOS % 0.6 % (0-4.5); HEMATOCRIT 35.9 % (32.4-45.2); LYMPH % 6.8 % (8-40); MCH 30.1 pg (25.7-33.7); MCHC 33.5 g/dl (32.0-36.0); MEAN CELL VOLUME 89.9 fl (80-96); MEAN PLT VOLUME 8.6 fl (7.5-11.1); MONO % 6.2 % (3.8-10.2); NEUT % 85.9 % (42.8-82.8); PLATELET COUNT 209 10^3/uL (134-434); RBC 3.99 M/mm3 (3.60-5.2); RDW 13.5 % (11.6-15.6); WHITE BLOOD COUNT 9.8 K/mm3 (4.0-10.0)
[2021-12-04 07:13] LABS: INR 1.1 (0.83-1.09); PROTHROMBIN TIME (PATIENT) 12.7 SEC (9.7-13.0)
[2021-12-04 07:15] LABS: ACTIVATED PTT 24.6 SECONDS (25.2-36.5)
[2021-12-04 07:28] LABS: ALBUMIN 2.8 g/dl (3.4-5.0); BLOOD UREA NITROGEN 19.8 mg/dL (7-18); MAGNESIUM 1.8 mg/dL (1.8-2.4)
[2021-12-04 07:31] LABS: CREATININE 0.7 mg/dL (0.55-1.3); PHOSPHOROUS 2.6 mg/dL (2.5-4.9)
[2021-12-04 07:32] LABS: BILIRUBIN,TOTAL 0.8 mg/dL (0.2-1); TOT PROT 6.4 g/dl (6.4-8.2)
[2021-12-04] MEDS ORDERED: ENOXAPARIN NA (PORCINE) 40 MG/0.4 ML DISP.SYRIN SQ ONE (07:49)
[2021-12-04] MEDS ORDERED: METOPROLOL TARTRATE 5 MG/5 ML VIAL ONE (07:49)
[2021-12-04] MEDS: METOPROLOL TARTRATE 5 MG/5 ML VIAL IVPB SCH ×2 (09:52→22:11)
[2021-12-04] MEDS: ENOXAPARIN NA (PORCINE) 40 MG/0.4 ML DISP.SYRIN SQ SCH (09:53)
[2021-12-04] MEDS: AMINO ACIDS 4.25%/D5W 1,000 ML IV SCH (17:07)
[2021-12-04] MEDS: morphine SULFATE 4 MG/ML VIAL IVPUSH PRN (17:30)
[2021-12-04] MEDS: CEFTRIAXONE 1 GM in DEXTROSE 5%-WATER - 50 ML IVPB SCH (18:22)
[2021-12-05 09:18] LABS: HEMATOCRIT 39.6 % (32.4-45.2); HEMOGLOBIN 13.2 GM/dL (10.7-15.3); MCH 29.5 pg (25.7-33.7); MCHC 33.4 g/dl (32.0-36.0); MEAN CELL VOLUME 88.5 fl (80-96); MEAN PLT VOLUME 8.1 fl (7.5-11.1); PLATELET COUNT 287 10^3/uL (134-434); RBC 4.48 M/mm3 (3.60-5.2); RDW 13.6 % (11.6-15.6); WHITE BLOOD COUNT 10.9 K/mm3 (4.0-10.0)
[2021-12-05 09:33] LABS: CALCIUM 8.8 mg/dL (8.5-10.1)
[2021-12-05 09:34] LABS: ALBUMIN 3.2 g/dl (3.4-5.0); BLOOD UREA NITROGEN 15.9 mg/dL (7-18)
[2021-12-05 09:37] LABS: CREATININE 0.7 mg/dL (0.55-1.3)
[2021-12-05 09:38] LABS: BILIRUBIN,TOTAL 0.6 mg/dL (0.2-1)
[2021-12-05 09:39] LABS: TOT PROT 7.2 g/dl (6.4-8.2)
[2021-12-05] MEDS: ENOXAPARIN NA (PORCINE) 40 MG/0.4 ML DISP.SYRIN SQ SCH (10:56)
[2021-12-05] MEDS: METOPROLOL TARTRATE 5 MG/5 ML VIAL IVPB SCH ×3 (10:56→23:34)
[2021-12-05] MEDS: CEFTRIAXONE 1 GM in DEXTROSE 5%-WATER - 50 ML IVPB SCH (10:56)
[2021-12-05] MEDS: AMINO ACIDS 4.25%/D5W 1,000 ML IV SCH (15:14)
[2021-12-05] MEDS: morphine SULFATE 4 MG/ML VIAL IVPUSH PRN (18:59)
[2021-12-05 19:16] VITALS: BMI 28.5
[2021-12-06] MEDS: CEFTRIAXONE 1 GM in DEXTROSE 5%-WATER - 50 ML IVPB SCH (10:09)
[2021-12-06] MEDS: METOPROLOL TARTRATE 5 MG/5 ML VIAL IVPB SCH ×2 (10:09→22:34)
[2021-12-06] MEDS: ENOXAPARIN NA (PORCINE) 40 MG/0.4 ML DISP.SYRIN SQ SCH (10:09)
[2021-12-06] MEDS: AMINO ACIDS 4.25%/D5W 1,000 ML IV SCH (22:00)
[2021-12-07] MEDS: ONDANSETRON 4 MG/2 ML VIAL IVPUSH PRN ×2 (03:00→17:21)
[2021-12-07 09:38] LABS: BASO % 0.5 % (0-2.0); EOS % 1.4 % (0-4.5); HEMATOCRIT 37.9 % (32.4-45.2); HEMOGLOBIN 12.6 GM/dL (10.7-15.3); LYMPH % 8.9 % (8-40); MCH 29.2 pg (25.7-33.7); MCHC 33.3 g/dl (32.0-36.0); MEAN CELL VOLUME 87.6 fl (80-96); MEAN PLT VOLUME 7.6 fl (7.5-11.1); MONO % 6.4 % (3.8-10.2); NEUT % 82.8 % (42.8-82.8); PLATELET COUNT 257 10^3/uL (134-434); RBC 4.33 M/mm3 (3.60-5.2); RDW 13.1 % (11.6-15.6); WHITE BLOOD COUNT 9.1 K/mm3 (4.0-10.0)
[2021-12-07] MEDS: ENOXAPARIN NA (PORCINE) 40 MG/0.4 ML DISP.SYRIN SQ SCH (10:21)
[2021-12-07] MEDS: METOPROLOL TARTRATE 5 MG/5 ML VIAL IVPB SCH ×2 (10:22→23:17)
[2021-12-07 10:35] LABS: CALCIUM 8.5 mg/dL (8.5-10.1)
[2021-12-07 10:36] LABS: ALBUMIN 2.9 g/dl (3.4-5.0); BLOOD UREA NITROGEN 16.9 mg/dL (7-18)
[2021-12-07 10:39] LABS: CREATININE 0.6 mg/dL (0.55-1.3)
[2021-12-07 10:41] LABS: BILIRUBIN,TOTAL 0.5 mg/dL (0.2-1); TOT PROT 6.2 g/dl (6.4-8.2)
[2021-12-07] MEDS: CEFTRIAXONE 1 GM in DEXTROSE 5%-WATER - 50 ML IVPB SCH (11:25)
[2021-12-07] MEDS: AMINO ACIDS 4.25%/D5W 1,000 ML IV SCH (14:50)
[2021-12-08] MEDS ORDERED: ACETAMINOPHEN 1000 MG/100 ML BAG IVPB PRN (01:22)
[2021-12-08 08:15] LABS: BASO % 0.4 % (0-2.0); EOS % 1.8 % (0-4.5); HEMATOCRIT 38.8 % (32.4-45.2); LYMPH % 11.1 % (8-40); MCH 29.2 pg (25.7-33.7); MCHC 33.3 g/dl (32.0-36.0); MEAN CELL VOLUME 87.5 fl (80-96); MONO % 6.2 % (3.8-10.2); NEUT % 80.5 % (42.8-82.8); PLATELET COUNT 294 10^3/uL (134-434); RBC 4.44 M/mm3 (3.60-5.2); RDW 13.1 % (11.6-15.6); WHITE BLOOD COUNT 10.6 K/mm3 (4.0-10.0)
[2021-12-08 08:20] LABS: CALCIUM 8.3 mg/dL (8.5-10.1)
[2021-12-08 08:21] LABS: BLOOD UREA NITROGEN 17.6 mg/dL (7-18)
[2021-12-08 08:23] LABS: CREATININE 0.7 mg/dL (0.55-1.3)
[2021-12-08 08:25] LABS: BILIRUBIN,TOTAL 0.5 mg/dL (0.2-1); TOT PROT 6.5 g/dl (6.4-8.2)
[2021-12-08] MEDS: CEFTRIAXONE 1 GM in DEXTROSE 5%-WATER - 50 ML IVPB SCH (11:56)
[2021-12-08] MEDS: METOPROLOL TARTRATE 5 MG/5 ML VIAL IVPB SCH ×2 (11:57→22:00)
[2021-12-08] MEDS: ENOXAPARIN NA (PORCINE) 40 MG/0.4 ML DISP.SYRIN SQ SCH (11:57)
[2021-12-08] MEDS: KCL 10 MEQ IVPB 10 MEQ/100 ML INFUS.BAG IVPB SCH ×4 (13:16→18:02)
[2021-12-08] MEDS: AMINO ACIDS 4.25%/D5W 1,000 ML IV SCH (16:25)
[2021-12-09] MEDS: ONDANSETRON 4 MG/2 ML VIAL IVPUSH PRN ×2 (06:14→17:29)
[2021-12-09 08:44] LABS: BASO % 0.7 % (0-2.0); EOS % 3.4 % (0-4.5); HEMATOCRIT 36.4 % (32.4-45.2); LYMPH % 10.2 % (8-40); MCH 28.8 pg (25.7-33.7); MCHC 33.1 g/dl (32.0-36.0); MEAN PLT VOLUME 8.7 fl (7.5-11.1); MONO % 7.4 % (3.8-10.2); NEUT % 78.3 % (42.8-82.8); PLATELET COUNT 265 10^3/uL (134-434); RBC 4.18 M/mm3 (3.60-5.2); RDW 13.2 % (11.6-15.6)
[2021-12-09 08:45] LABS: WHITE BLOOD COUNT 13.2 K/mm3 (4.0-10.0)
[2021-12-09 09:21] LABS: BLOOD UREA NITROGEN 16.7 mg/dL (7-18)
[2021-12-09 09:24] LABS: CREATININE 0.5 mg/dL (0.55-1.3)
[2021-12-09 11:36] LABS: PHOSPHOROUS 2.5 mg/dL (2.5-4.9)
[2021-12-09] MEDS: METOPROLOL TARTRATE 5 MG/5 ML VIAL IVPB SCH ×2 (11:43→21:27)
[2021-12-09] MEDS: ENOXAPARIN NA (PORCINE) 40 MG/0.4 ML DISP.SYRIN SQ SCH ×2 (11:44→14:14)
[2021-12-09] MEDS: CEFTRIAXONE 1 GM in DEXTROSE 5%-WATER - 50 ML IVPB SCH ×2 (11:44→14:13)
[2021-12-09] MEDS: AMINO ACIDS 4.25%/D5W 1,000 ML IV SCH ×2 (14:12→17:30)
[2021-12-09] MEDS: KCL 10 MEQ IVPB 10 MEQ/100 ML INFUS.BAG IVPB SCH ×6 (15:16→23:27)
[2021-12-09] MEDS ORDERED: ACETAMINOPHEN 1000 MG/100 ML BAG IVPB PRN ×2 (16:33→16:36)
[2021-12-09] MEDS ORDERED: morphine SULFATE 4 MG/ML VIAL IVPUSH PRN (16:34)
[2021-12-09] MEDS ORDERED: POTASSIUM CHLORIDE 40 MEQ in AMINO ACIDS 4.25%/D5W 1,000 ML IV SCH (18:32)
[2021-12-10] MEDS ORDERED: POTASSIUM CHLORIDE 20 MEQ in AMINO ACIDS 4.25%/D5W 1,000 ML IV SCH (09:00)
[2021-12-10] MEDS: CEFTRIAXONE 1 GM in DEXTROSE 5%-WATER - 50 ML IVPB SCH (10:39)
[2021-12-10] MEDS: METOPROLOL TARTRATE 5 MG/5 ML VIAL IVPB SCH ×2 (10:40→23:40)
[2021-12-10] MEDS: ENOXAPARIN NA (PORCINE) 40 MG/0.4 ML DISP.SYRIN SQ SCH (10:40)
[2021-12-10 10:57] LABS: BASO % 0.4 % (0-2.0); EOS % 2.3 % (0-4.5); HEMATOCRIT 35.5 % (32.4-45.2); HEMOGLOBIN 12.5 GM/dL (10.7-15.3); LYMPH % 10.9 % (8-40); MCH 30.4 pg (25.7-33.7); MCHC 35.1 g/dl (32.0-36.0); MEAN CELL VOLUME 86.5 fl (80-96); MEAN PLT VOLUME 7.9 fl (7.5-11.1); MONO % 8.9 % (3.8-10.2); NEUT % 77.5 % (42.8-82.8); PLATELET COUNT 290 10^3/uL (134-434); RDW 13.5 % (11.6-15.6); WHITE BLOOD COUNT 10.4 K/mm3 (4.0-10.0)
[2021-12-10 11:20] LABS: ALBUMIN 2.9 g/dl (3.4-5.0); BLOOD UREA NITROGEN 23.7 mg/dL (7-18); CALCIUM 8.4 mg/dL (8.5-10.1)
[2021-12-10 11:23] LABS: CREATININE 0.7 mg/dL (0.55-1.3)
[2021-12-10 11:25] LABS: BILIRUBIN,TOTAL 0.7 mg/dL (0.2-1); TOT PROT 6.5 g/dl (6.4-8.2)
[2021-12-10] MEDS: ONDANSETRON 4 MG/2 ML VIAL IVPUSH PRN (18:38)
[2021-12-10] MEDS: ZINC OXIDE 20% TOPICAL OINTMENT 30 GM TUBE TP SCH (23:41)
[2021-12-11] MEDS: METOPROLOL TARTRATE 5 MG/5 ML VIAL IVPB SCH ×3 (00:20→22:34)
[2021-12-11] MEDS: POTASSIUM CHLORIDE 40 MEQ in AMINO ACIDS 4.25%/D5W 1,000 ML IV SCH ×3 (00:20→18:05)
[2021-12-11] MEDS ORDERED: ROCURONIUM BROMIDE 50 MG/5 ML SYRINGE ONE (07:10)
[2021-12-11] MEDS ORDERED: SUCCINYLCHOLINE CHLORIDE 200 MG/10 ML SYRINGE ONE (07:10)
[2021-12-11] MEDS ORDERED: PROPOFOL 80 ML ONE (07:10)
[2021-12-11] MEDS ORDERED: DEXAMETHASONE SOD PHOSPHATE 4 MG/1 ML VIAL ONE (07:23)
[2021-12-11] MEDS ORDERED: LIDOCAINE HCL 1%, 10 MG/ML (20ML VIAL) ONE (07:27)
[2021-12-11] MEDS ORDERED: GLYCOPYRROLATE 0.2 MG/1 ML VIAL ONE (09:15)
[2021-12-11] MEDS ORDERED: ONDANSETRON 4 MG/2 ML VIAL ONE ×2 (09:15→11:09)
[2021-12-11] MEDS ORDERED: NEOSTIGMINE METHYLSULFATE 0.5 MG/ML - 10 ML MDV ONE (09:15)
[2021-12-11] MEDS ORDERED: LIDOCAINE HCL 1%, 10 MG/ML (20ML VIAL) NR ONE (09:33)
[2021-12-11] MEDS ORDERED: BUPIVACAINE HCL/PF 0.5% (5MG/ML) 10 ML VIAL IJ ONE (09:34)
[2021-12-11] MEDS: ENOXAPARIN NA (PORCINE) 40 MG/0.4 ML DISP.SYRIN SQ SCH (09:58)
[2021-12-11] MEDS ORDERED: KETOROLAC TROMETHAMINE 30 MG/1 ML VIAL ONE (09:58)
[2021-12-11] MEDS: ZINC OXIDE 20% TOPICAL OINTMENT 30 GM TUBE TP SCH ×2 (09:58→22:40)
[2021-12-11] MEDS: CEFTRIAXONE 1 GM in DEXTROSE 5%-WATER - 50 ML IVPB SCH (09:58)
[2021-12-11] MEDS ORDERED: POVIDONE-IODINE OINTMENT 10% - 28.4 GM TUBE ONE (10:40)
[2021-12-11] MEDS ORDERED: ONDANSETRON 4 MG/2 ML VIAL IVPUSH PRN ×2 (11:06→11:39)
[2021-12-11] MEDS ORDERED: LACTATED RINGERS SOLUTION 1,000 ML IV SCH (11:15)
[2021-12-11] MEDS ORDERED: morphine CARPU-JECT 2 MG/1 ML DISP.SYRIN IVPUSH PRN (11:39)
[2021-12-11] MEDS: SODIUM CHLORIDE 1,000 ML IV SCH (12:30)
[2021-12-11] MEDS: HEPARIN NA (PORCINE) 5,000 UNITS/ML 1ML VIAL SQ SCH (18:06)
[2021-12-11] MEDS: ACETAMINOPHEN 1000 MG/100 ML BAG IVPB SCH ×2 (18:06→23:26)
[2021-12-12] MEDS: HEPARIN NA (PORCINE) 5,000 UNITS/ML 1ML VIAL SQ SCH ×3 (01:18→19:04)
[2021-12-12] MEDS: ACETAMINOPHEN 1000 MG/100 ML BAG IVPB SCH (05:22)
[2021-12-12] MEDS: POTASSIUM CHLORIDE 40 MEQ in AMINO ACIDS 4.25%/D5W 1,000 ML IV SCH ×2 (06:27→16:13)
[2021-12-12 08:41] LABS: BASO % 0.3 % (0-2.0); EOS % 2.2 % (0-4.5); HEMATOCRIT 36.6 % (32.4-45.2); HEMOGLOBIN 12.2 GM/dL (10.7-15.3); LYMPH % 7.4 % (8-40); MCH 29.3 pg (25.7-33.7); MCHC 33.2 g/dl (32.0-36.0); MONO % 6.3 % (3.8-10.2); NEUT % 83.8 % (42.8-82.8); PLATELET COUNT 308 10^3/uL (134-434); RBC 4.16 M/mm3 (3.60-5.2); RDW 13.7 % (11.6-15.6); WHITE BLOOD COUNT 12.2 K/mm3 (4.0-10.0)
[2021-12-12 08:52] LABS: BLOOD UREA NITROGEN 20.8 mg/dL (7-18); CALCIUM 7.9 mg/dL (8.5-10.1)
[2021-12-12 08:53] LABS: ALBUMIN 2.5 g/dl (3.4-5.0)
[2021-12-12 08:56] LABS: CREATININE 0.6 mg/dL (0.55-1.3)
[2021-12-12 08:58] LABS: BILIRUBIN,TOTAL 0.4 mg/dL (0.2-1); TOT PROT 5.6 g/dl (6.4-8.2)
[2021-12-12] MEDS: METOPROLOL TARTRATE 5 MG/5 ML VIAL IVPB SCH ×2 (11:38→22:29)
[2021-12-12] MEDS: ZINC OXIDE 20% TOPICAL OINTMENT 30 GM TUBE TP SCH ×2 (11:39→22:40)
[2021-12-12] MEDS: SODIUM CHLORIDE 1,000 ML IV SCH (11:40)
[2021-12-13] MEDS: HEPARIN NA (PORCINE) 5,000 UNITS/ML 1ML VIAL SQ SCH ×3 (02:13→17:16)
[2021-12-13] MEDS: POTASSIUM CHLORIDE 40 MEQ in AMINO ACIDS 4.25%/D5W 1,000 ML IV SCH ×2 (07:18→17:16)
[2021-12-13 09:53] LABS: BASO % 0.6 % (0-2.0); EOS % 1.8 % (0-4.5); HEMATOCRIT 35.2 % (32.4-45.2); HEMOGLOBIN 11.9 GM/dL (10.7-15.3); LYMPH % 7.7 % (8-40); MCH 29.9 pg (25.7-33.7); MCHC 33.9 g/dl (32.0-36.0); MEAN PLT VOLUME 7.8 fl (7.5-11.1); MONO % 5.8 % (3.8-10.2); NEUT % 84.1 % (42.8-82.8); PLATELET COUNT 280 10^3/uL (134-434); RBC 3.99 M/mm3 (3.60-5.2); RDW 13.8 % (11.6-15.6); WHITE BLOOD COUNT 12.3 K/mm3 (4.0-10.0)
[2021-12-13 10:08] LABS: ALBUMIN 2.4 g/dl (3.4-5.0); BLOOD UREA NITROGEN 14.8 mg/dL (7-18)
[2021-12-13 10:11] LABS: CREATININE 0.4 mg/dL (0.55-1.3)
[2021-12-13 10:12] LABS: BILIRUBIN,TOTAL 0.4 mg/dL (0.2-1)
[2021-12-13 10:13] LABS: TOT PROT 5.7 g/dl (6.4-8.2)
[2021-12-13] MEDS: ZINC OXIDE 20% TOPICAL OINTMENT 30 GM TUBE TP SCH ×2 (11:38→22:12)
[2021-12-13] MEDS: SODIUM CHLORIDE 1,000 ML IV SCH (11:38)
[2021-12-13] MEDS: METOPROLOL TARTRATE 5 MG/5 ML VIAL IVPB SCH ×2 (12:43→22:10)
[2021-12-13] MEDS: MINERAL OIL/PET HY-PHL TOPICAL OINTMENT 454 GM JAR TP SCH (15:52)
[2021-12-14] MEDS: HEPARIN NA (PORCINE) 5,000 UNITS/ML 1ML VIAL SQ SCH ×3 (03:26→18:47)
[2021-12-14] MEDS: POTASSIUM CHLORIDE 40 MEQ in AMINO ACIDS 4.25%/D5W 1,000 ML IV SCH ×4 (06:10→22:00)
[2021-12-14 09:14] LABS: BASO % 0.8 % (0-2.0); EOS % 2.9 % (0-4.5); HEMATOCRIT 35.4 % (32.4-45.2); HEMOGLOBIN 11.8 GM/dL (10.7-15.3); LYMPH % 9.4 % (8-40); MCH 29.2 pg (25.7-33.7); MCHC 33.5 g/dl (32.0-36.0); MEAN CELL VOLUME 87.1 fl (80-96); MEAN PLT VOLUME 8.3 fl (7.5-11.1); NEUT % 80.9 % (42.8-82.8); PLATELET COUNT 309 10^3/uL (134-434); RBC 4.06 M/mm3 (3.60-5.2); RDW 13.6 % (11.6-15.6); WHITE BLOOD COUNT 10.7 K/mm3 (4.0-10.0)
[2021-12-14 09:34] LABS: CALCIUM 8.1 mg/dL (8.5-10.1)
[2021-12-14 09:35] LABS: ALBUMIN 2.5 g/dl (3.4-5.0); BLOOD UREA NITROGEN 13.5 mg/dL (7-18)
[2021-12-14 09:40] LABS: BILIRUBIN,TOTAL 0.4 mg/dL (0.2-1)
[2021-12-14 09:41] LABS: CREATININE 0.4 mg/dL (0.55-1.3)
[2021-12-14] MEDS ORDERED: ACETAMINOPHEN 325 MG TABLET (FP) PO PRN ×2 (10:52→10:53)
[2021-12-14] MEDS ORDERED: oxyCODONE HCL 5 MG TABLET PO PRN (10:53)
[2021-12-14] MEDS: MINERAL OIL/PET HY-PHL TOPICAL OINTMENT 454 GM JAR TP SCH (11:32)
[2021-12-14] MEDS: METOPROLOL TARTRATE 5 MG/5 ML VIAL IVPB SCH (11:46)
[2021-12-14] MEDS: ZINC OXIDE 20% TOPICAL OINTMENT 30 GM TUBE TP SCH ×2 (15:07→22:00)
[2021-12-14] MEDS: METOPROLOL TARTRATE 25 MG TABLET (FP) PO SCH (22:00)
[2021-12-15] MEDS: HEPARIN NA (PORCINE) 5,000 UNITS/ML 1ML VIAL SQ SCH ×3 (02:08→17:06)
[2021-12-15 08:24] LABS: HEMATOCRIT 35.2 % (32.4-45.2); HEMOGLOBIN 11.7 GM/dL (10.7-15.3); MCH 29.1 pg (25.7-33.7); MCHC 33.2 g/dl (32.0-36.0); MEAN CELL VOLUME 87.6 fl (80-96); MEAN PLT VOLUME 8.3 fl (7.5-11.1); PLATELET COUNT 350 10^3/uL (134-434); RBC 4.02 M/mm3 (3.60-5.2); RDW 13.6 % (11.6-15.6); WHITE BLOOD COUNT 10.1 K/mm3 (4.0-10.0)
[2021-12-15 09:13] LABS: BLOOD UREA NITROGEN 11.6 mg/dL (7-18); CALCIUM 8.4 mg/dL (8.5-10.1)
[2021-12-15 09:14] LABS: ALBUMIN 2.5 g/dl (3.4-5.0)
[2021-12-15 09:17] LABS: CREATININE 0.5 mg/dL (0.55-1.3)
[2021-12-15 09:18] LABS: BILIRUBIN,TOTAL 0.4 mg/dL (0.2-1)
[2021-12-15] MEDS: MINERAL OIL/PET HY-PHL TOPICAL OINTMENT 454 GM JAR TP SCH (11:08)
[2021-12-15] MEDS: METOPROLOL TARTRATE 25 MG TABLET (FP) PO SCH ×2 (11:08→21:48)
[2021-12-15] MEDS: ZINC OXIDE 20% TOPICAL OINTMENT 30 GM TUBE TP SCH ×2 (11:24→20:48)
[2021-12-15] MEDS: POTASSIUM CHLORIDE 40 MEQ in AMINO ACIDS 4.25%/D5W 1,000 ML IV SCH (15:18)
[2021-12-15 16:08] VITALS: RESP 20
[2021-12-16] MEDS: HEPARIN NA (PORCINE) 5,000 UNITS/ML 1ML VIAL SQ SCH ×3 (02:19→17:33)
[2021-12-16] MEDS: POTASSIUM CHLORIDE 40 MEQ in AMINO ACIDS 4.25%/D5W 1,000 ML IV SCH ×2 (02:48→12:09)
[2021-12-16] MEDS: MINERAL OIL/PET HY-PHL TOPICAL OINTMENT 454 GM JAR TP SCH (09:55)
[2021-12-16] MEDS: METOPROLOL TARTRATE 25 MG TABLET (FP) PO SCH ×2 (09:55→21:29)
[2021-12-16] MEDS: ZINC OXIDE 20% TOPICAL OINTMENT 30 GM TUBE TP SCH ×2 (09:55→21:30)
[2021-12-16 09:58] LABS: HEMATOCRIT 35.7 % (32.4-45.2); HEMOGLOBIN 11.9 GM/dL (10.7-15.3); MCH 29.3 pg (25.7-33.7); MCHC 33.5 g/dl (32.0-36.0); MEAN CELL VOLUME 87.6 fl (80-96); MEAN PLT VOLUME 8.6 fl (7.5-11.1); PLATELET COUNT 355 10^3/uL (134-434); RBC 4.08 M/mm3 (3.60-5.2); RDW 13.8 % (11.6-15.6); WHITE BLOOD COUNT 9.8 K/mm3 (4.0-10.0)
[2021-12-16 10:20] LABS: CALCIUM 8.6 mg/dL (8.5-10.1)
[2021-12-16 10:21] LABS: BLOOD UREA NITROGEN 11.5 mg/dL (7-18)
[2021-12-16 10:24] LABS: CREATININE 0.5 mg/dL (0.55-1.3)
[2021-12-16] MEDS: oxyCODONE HCL 5 MG TABLET PO PRN (10:40)
[2021-12-16] MEDS ORDERED: AMINO ACIDS 4.25%/D5W 1,000 ML IV SCH (18:21)
[2021-12-16] MEDS: NYSTATIN 100000 UNIT/GM TOPICAL OINTMENT 15 GM TUBE TP SCH (21:30)
[2021-12-17] MEDS: HEPARIN NA (PORCINE) 5,000 UNITS/ML 1ML VIAL SQ SCH ×3 (02:57→17:29)
[2021-12-17] MEDS: oxyCODONE HCL 5 MG TABLET PO PRN (07:41)
[2021-12-17] MEDS: MINERAL OIL/PET HY-PHL TOPICAL OINTMENT 454 GM JAR TP SCH (10:28)
[2021-12-17] MEDS: METOPROLOL TARTRATE 25 MG TABLET (FP) PO SCH (10:28)
[2021-12-17] MEDS: ZINC OXIDE 20% TOPICAL OINTMENT 30 GM TUBE TP SCH (10:28)
[2021-12-17] MEDS: NYSTATIN 100000 UNIT/GM TOPICAL OINTMENT 15 GM TUBE TP SCH (10:28)
[2021-12-17 15:42] VITALS: BP 138/59; PULSE 108; TEMP 99.2
== END 2021-12-17 19:02 | disposition home or self-care (01) | DRG 335 ==
LOC: JER 10:18 → JERBED 14:56 → J7W 12-04 14:10 → J8W 12-08 15:33
PROVIDERS: ADMIT Internal Medicine
PROC: 0DH67UZ Insertion of Feeding Device into Stomach, Via Natural or Artificial Opening (ICD-10-PCS; 2021-12-04)
PROC: 0WQF0ZZ Repair Abdominal Wall, Open Approach (ICD-10-PCS; 2021-12-11)
PROC: 0DN80ZZ Release Small Intestine, Open Approach (ICD-10-PCS; principal; 2021-12-11 08:00)
DX: K43.0 Incisional hernia with obstruction, without gangrene (principal); U07.1 COVID-19; N39.0 Urinary tract infection, site not specified; I10 Essential (primary) hypertension; E78.5 Hyperlipidemia, unspecified; D72.829 Elevated white blood cell count, unspecified; R11.2 Nausea with vomiting, unspecified; R10.13 Epigastric pain; Z88.0 Allergy status to penicillin; E87.6 Hypokalemia; I25.10 Atherosclerotic heart disease of native coronary artery without angina pectoris; Z98.61 Coronary angioplasty status; K66.0 Peritoneal adhesions (postprocedural) (postinfection)
CPT/HCPCS: 0241U-QW; 36415; 71045-TC-FY; 74019-TC-FY; 74177-TC; 74251-TC-FY; 80048; 80053; 81003; 82803; 83605; 83735; 83880; 84100; 84484; 85025; 85027; 85610; 85730; 86850; 86900; 86901; 87086; 88302-TC; 93005; 93010; 94760; 97116-GP; 97161-GP; 99285-25; C9803-CS; J1644; Q9967; U0003; U0005

== ENCOUNTER 2024-05-17 20:50 | Inpatient (IN) | payer OTHER ==
[2024-05-17 22:09] LABS: HEMATOCRIT 37.4 % (32.4-45.2); HEMOGLOBIN 12.6 G/dL (10.7-15.3); MCH 29.5 pg (25.7-33.7); MCHC 33.8 g/dl (32.0-36.0); MEAN CELL VOLUME 87.4 fl (80-96); MEAN PLT VOLUME 8.8 fl (7.5-11.1); PLATELET COUNT 281.6 10^3/uL (134-434); RBC 4.28 10^6/uL (3.60-5.2); RDW 13.9 % (11.6-15.6)
[2024-05-17 22:20] LABS: ALK PHOS 57 U/L (45-117); ANION GAP 10 mmol/L (4-13); BILIRUBIN,TOTAL 0.4 mg/dl (0.2-1); CALCIUM 9.3 mg/dl (8.5-10.1); CHLORIDE 99 mmol/L (98-107); CO2 27 mmol/L (21-32); CREATININE 0.9 mg/dl (0.6-1.3); GLUCOSE,RANDOM 112 mg/dl (74-106); POTASSIUM 4.3 mmol/L (3.5-5.1); SGOT/AST 14 U/L (15-37); SGPT/ALT 14 U/L (7-52); SODIUM 136 mmol/L (136-145); TOT PROT 8.1 g/dl (6.4-8.2)
[2024-05-17 22:24] LABS: PLATELET ESTIMATE ADEQUATE
[2024-05-18] MEDS ORDERED: ACETAMINOPHEN 325 MG TABLET (FP) ONE (00:45)
[2024-05-18] MEDS: SODIUM CHLORIDE 250 ML IV STA (00:58)
[2024-05-18] MEDS: ACETAMINOPHEN 325 MG TABLET (FP) PO ONE (00:58)
[2024-05-18 06:47] VITALS: BMI 27.8
[2024-05-18 08:36] LABS: CALCIUM 8.8 mg/dl (8.5-10.1); CREATININE 0.9 mg/dl (0.6-1.3); POTASSIUM 4.4 mmol/L (3.5-5.1)
[2024-05-18 10:24] LABS: BASO % 0.5 % (0-2.0); EOS % 10.7 % (0-4.5); HEMOGLOBIN 11.4 GM/dL (10.7-15.3); LYMPH % 11.5 % (8-40); MCH 28.5 pg (25.7-33.7); MCHC 33.4 g/dl (32.0-36.0); MEAN CELL VOLUME 85.4 fl (80-96); MEAN PLT VOLUME 8.7 fl (7.5-11.1); MONO % 5.8 % (3.8-10.2); NEUT % 71.5 % (42.8-82.8); PLATELET COUNT 261 10^3/uL (134-434); RBC 3.98 M/mm3 (3.60-5.2); WHITE BLOOD COUNT 8.5 K/mm3 (4.0-10.0)
[2024-05-18] MEDS: CEFTRIAXONE 1 G/50 ML PREMIX 50 ML IVPB SCH (11:04)
[2024-05-18] MEDS: LORATADINE 10 MG TABLET PO SCH (18:58)
[2024-05-18] MEDS: DONEPEZIL HCL 10 MG TABLET (FP) PO SCH (22:40)
[2024-05-18] MEDS: ATORVASTATIN CA 40 MG TABLET (FP) PO SCH (22:40)
[2024-05-19 08:41] LABS: ALBUMIN 3.5 g/dl (3.4-5.0); BILIRUBIN,TOTAL 0.6 mg/dl (0.2-1); CALCIUM 8.8 mg/dl (8.5-10.1); CREATININE 0.8 mg/dl (0.6-1.3); POTASSIUM 4.1 mmol/L (3.5-5.1); TOT PROT 7.2 g/dl (6.4-8.2)
[2024-05-19 09:44] LABS: HEMATOCRIT 34.2 % (32.4-45.2); HEMOGLOBIN 11.5 GM/dL (10.7-15.3); MCH 28.9 pg (25.7-33.7); MCHC 33.7 g/dl (32.0-36.0); MEAN CELL VOLUME 85.8 fl (80-96); MEAN PLT VOLUME 8.4 fl (7.5-11.1); PLATELET COUNT 262 10^3/uL (134-434); RBC 3.99 M/mm3 (3.60-5.2); RDW 14.2 % (11.6-15.6); WHITE BLOOD COUNT 7.4 K/mm3 (4.0-10.0)
[2024-05-19 10:07] LABS: NEUT % 60.4 % (42.8-82.8)
[2024-05-19 10:08] LABS: EOS % 18.5 % (0-4.5); MONO % 6.4 % (3.8-10.2)
[2024-05-19 10:09] LABS: BASO % 0.7 % (0-2.0)
[2024-05-19 10:47] VITALS: RESP 16
[2024-05-19 14:03] VITALS: BP 118/58; PULSE 89; TEMP 98.3
== END 2024-05-19 17:14 | DRG 689 ==
LOC: FER 20:50 → FM/S 05-18 02:17 → UNDOADMIN 05-18 02:18 → FM/S 05-18 02:18
PROVIDERS: ADMIT Internal Medicine
DX: N39.0 Urinary tract infection, site not specified (principal); G93.41 Metabolic encephalopathy; N17.9 Acute kidney failure, unspecified; B96.20 Unspecified Escherichia coli [E. coli] as the cause of diseases classified elsewhere; I25.10 Atherosclerotic heart disease of native coronary artery without angina pectoris; E78.5 Hyperlipidemia, unspecified; I10 Essential (primary) hypertension; F03.90 Unspecified dementia, unspecified severity, without behavioral disturbance, psychotic disturbance, mood disturbance, and anxiety; F41.9 Anxiety disorder, unspecified; R31.9 Hematuria, unspecified; Z85.42 Personal history of malignant neoplasm of other parts of uterus; Z88.0 Allergy status to penicillin; Z95.5 Presence of coronary angioplasty implant and graft
CPT/HCPCS: 36415; 71045-TC-FY; 80048; 80053; 81003; 81015; 83605; 85025; 85027; 87040; 87086; 87186; 93005; 99285-25